=== PATIENT | male | born 1985 | race Two or more races ===

== ENCOUNTER 2018-03-20 18:00 | Emergency (ER) | payer OTHER ==
[~2018-03-20] VITALS: Ht 175.3 cm; Wt 61.2 kg
--- NOTE | 2018-03-20 18:10 | NUR ---
PRESENTS TO ER C/O LOW BACK PAIN, NAUSEA, VOMITING, FEELING WEAK. A/OX 4. BREATHING EVEN AND UNLABORED. NO SOB, NAD, VITALS STABLE. SAFETY AND COMFORT MEASURES IN PLACE. AWAITING MD ORDERS.
[2018-03-20] MEDS ORDERED: MORPHINE SULFATE INJ 2 MG/ML DISP.SYRIN IV ONE (18:30)
[2018-03-20] MEDS ORDERED: ONDANSETRON HCL/PF 4 MG/2 ML VIAL IVP ONE (18:30)
[2018-03-20] MEDS ORDERED: IV NS 0.9% 1,000 ML BAG IV ONE ×2 (18:30→21:00)
[2018-03-20] MEDS ORDERED: MORPHINE SULFATE INJ 4 MG/ML DISP.SYRIN ONE (18:40)
[2018-03-20] MEDS ORDERED: ONDANSETRON HCL/PF 4 MG/2 ML VIAL ONE (18:40)
--- NOTE | 2018-03-20 18:45 | NUR ---
NEW IV STARTED ON LAC, 20G. BLOOD DRAWN AND SENT TO LAB.
[2018-03-20 18:49] LABS: BASOPHILS # (AUTO) 0.2 /CMM (0.0-0.2); BASOPHILS % (AUTO) 1.5 % (0.0-2.0); EOSINOPHILS % (AUTO) 1.9 % (0.0-6.0); HEMATOCRIT 43 % (39-51); HEMOGLOBIN 14.7 g/dL (13.5-17.5); LYMPHOCYTES # (AUTO) 5.5 /CMM (0.8-4.8); LYMPHOCYTES % (AUTO) 45.9 % (20.0-44.0); MEAN CORPUSCULAR HGB CONC 34 g/dl (31.0-36.0); MEAN CORPUSCULAR VOLUME 93 fL (80-96); MONOCYTES # (AUTO) 0.9 /CMM (0.1-1.30); MONOCYTES % (AUTO) 7.1 % (2.0-12.0); NEUTROPHILS # (AUTO) 5.3 /CMM (1.8-8.9); NEUTROPHILS % (AUTO) 43.6 % (43.0-81.0); PLATELET COUNT (AUTO) 339 /CMM (150-450); RDW COEFFICIENT OF VARIATION 13.4 (11.5-15.0); WHITE BLOOD COUNT (AUTO) 12.1 K/uL (4.3-11.0)
[2018-03-20 19:03] LABS: CALCIUM, SERUM 9.2 mg/dL (8.5-10.1); CREATININE 1.2 mg/dL (0.6-1.3); POTASSIUM 3.7 mmol/L (3.5-5.1)
[2018-03-20 19:08] LABS: BILIRUBIN,DIRECT 0.1 mg/dL (0.0-0.2); BILIRUBIN,TOTAL 0.3 mg/dL (0.2-1.0); TOTAL PROTEIN, SERUM 7.4 g/dL (6.4-8.2)
--- NOTE | 2018-03-20 19:10 | NUR ---
REPORT GIVEN TO ARLEN ANDERS FOR TAYLOR.
--- NOTE | 2018-03-20 19:17 | NUR ---
RECEIVED REPORT FROM CHAGO ROLLINS FOR TAYLOR.
[2018-03-20] MEDS ORDERED: HYDROMORPHONE INJ 0.5 MG/0.5 ML SYRINGE IV ONE (19:30)
[2018-03-20] MEDS ORDERED: diphenhydrAMINE HCL 50 MG/ML VIAL IV ONE (20:30)
[2018-03-20] MEDS ORDERED: KETOROLAC TROMETHAMINE INJ 60 MG/2 ML VIAL IM ONE (20:30)
[2018-03-20] MEDS ORDERED: METOCLOPRAMIDE HCL 10 MG/2 ML VIAL IV ONE (20:30)
[2018-03-20 20:38] LABS: APPEARANCE,URINE Clear (CLEAR); BILIRUBIN,URINE Negative (NEGATIVE); BLOOD, URINE Negative Ery/uL (NEGATIVE); COLOR,URINE Yellow (YELLOW); KETONES,URINE Negative (NEGATIVE); LEUKOCYTE ESTERASE ,URINE Negative (NEGATIVE); NITRITE, URINE Negative (NEGATIVE); PH,URINE 7.5 (5.0-8.0); PROTEIN,URINE Negative (NEGATIVE); UGLUCOSE Negative (NEGATIVE); UROBILINOGEN,URINE 0.2 EU/dL (0.2)
[2018-03-20] MEDS ORDERED: KETOROLAC TROMETHAMINE INJ 30 MG/ML VIAL ONE (20:43)
[2018-03-20] MEDS ORDERED: METOCLOPRAMIDE HCL 10 MG/2 ML VIAL ONE (20:43)
[2018-03-20] MEDS ORDERED: diphenhydrAMINE HCL 50 MG/ML VIAL ONE (20:43)
[2018-03-20 22:19] VITALS: BP 119/65
--- NOTE | 2018-03-20 22:19 | NUR ---
Patient discharged to home in stable condition. Written and verbal after care instructions given. Patient verbalizes understanding of instruction.IV removed. Catheter intact and site benign. Pressure and 4x4 applied to site. No bleeding noted. VSS UPON DISCHARGE
== END 2018-03-20 22:23 | disposition home or self-care (01) ==
LOC: ER 18:06
DX: R10.84 Generalized abdominal pain (principal); R11.2 Nausea with vomiting, unspecified; F12.10 Cannabis abuse, uncomplicated; G89.29 Other chronic pain; K21.9 Gastro-esophageal reflux disease without esophagitis; N40.0 Benign prostatic hyperplasia without lower urinary tract symptoms
CPT/HCPCS: 36415; 74018; 80048; 80076; 80305; 81001; 83690; 85025; 85652; 86140; 93005; 96361; 96372; 96374; 96375; 99285; A4606; J1200; J1885; J2270; J2405; J2765; J7030 ×2; Z7610; 81000-TC

== ENCOUNTER 2018-03-22 13:21 | Inpatient (IN) | payer MEDICAID, OTHER ==
[~2018-03-22] VITALS: Ht 172.7 cm; Wt 68.5 kg
--- NOTE | 2018-03-22 13:25 | NUR ---
PRESENTS TO ER C/O GENERALIZED WEAKNESS, NAUSEA, VOMITING, HEADACHE. A/OX 4, BREATHING EVEN AND UNLABORED. NO SOB, NAD, VITALS STABLE. SAFETY AND COMFORT MEASURES IN PLACE. AWAITING MD ORDERS.
[2018-03-22] MEDS ORDERED: ONDANSETRON HCL/PF 4 MG/2 ML VIAL ONE (13:48)
[2018-03-22] MEDS ORDERED: diphenhydrAMINE HCL 50 MG/ML VIAL ONE (13:48)
[2018-03-22] MEDS ORDERED: METOCLOPRAMIDE HCL 10 MG/2 ML VIAL ONE (13:48)
[2018-03-22] MEDS ORDERED: MORPHINE SULFATE INJ 4 MG/ML DISP.SYRIN ONE (13:49)
--- NOTE | 2018-03-22 13:50 | NUR ---
NEW IV STARTED ON LAC, 20G. BLOOD DRAWN AND SENT TO LAB.
[2018-03-22 13:58] LABS: BASOPHILS # (AUTO) 0.2 /CMM (0.0-0.2); BASOPHILS % (AUTO) 1.8 % (0.0-2.0); HEMATOCRIT 43 % (39-51); HEMOGLOBIN 14.7 g/dL (13.5-17.5); LYMPHOCYTES # (AUTO) 3.6 /CMM (0.8-4.8); MEAN CORPUSCULAR HEMOGLOBIN 32 PG (26.0-33.0); MEAN CORPUSCULAR HGB CONC 34 g/dl (31.0-36.0); MEAN CORPUSCULAR VOLUME 92 fL (80-96); MONOCYTES # (AUTO) 0.6 /CMM (0.1-1.30); MONOCYTES % (AUTO) 7.2 % (2.0-12.0); NEUTROPHILS # (AUTO) 4.3 /CMM (1.8-8.9); PLATELET COUNT (AUTO) 325 /CMM (150-450); RDW COEFFICIENT OF VARIATION 13.2 (11.5-15.0); RED BLOOD CELL COUNT(AUTO) 4.66 MIL/uL (4.5-6.0); WHITE BLOOD COUNT (AUTO) 8.8 K/uL (4.3-11.0)
[2018-03-22] MEDS ORDERED: MORPHINE SULFATE INJ 2 MG/ML DISP.SYRIN IV ONE (14:00)
[2018-03-22] MEDS ORDERED: IV NS 0.9% 1,000 ML BAG IV ONE (14:00)
[2018-03-22] MEDS ORDERED: METOCLOPRAMIDE HCL 10 MG/2 ML VIAL IV ONE (14:00)
[2018-03-22] MEDS ORDERED: ONDANSETRON HCL/PF 4 MG/2 ML VIAL IVP ONE (14:00)
[2018-03-22] MEDS ORDERED: diphenhydrAMINE HCL 50 MG/ML VIAL IV ONE (14:00)
[2018-03-22] MEDS ORDERED: IV NS 0.9% 250 ML BAG IV ONE (14:00)
--- NOTE | 2018-03-22 14:25 | NUR ---
EDGING SUPERVISOR AT BEDSIDE.
[2018-03-22 14:27] LABS: CALCIUM, SERUM 8.6 mg/dL (8.5-10.1); CARBON DIOXIDE 25 mmol/L (21-32); CHLORIDE 104 mmol/L (98-107); CREATININE 0.7 mg/dL (0.6-1.3); GLUCOSE 103 mg/dL (74-106); POTASSIUM 3.3 mmol/L (3.5-5.1); SODIUM SERUM 138 mmol/L (136-145); UREA NITROGEN, BLOOD 8 mg/dL (7-18)
[2018-03-22 14:28] LABS: INR 0.94 (0.85-1.15)
[2018-03-22 14:32] LABS: ALANINE AMINOTRANSFERASE 18 U/L (12-78); ALBUMIN 3.8 g/dL (3.4-5.0); ALKALINE PHOSPHATASE 60 U/L (46-116); ASPARTATE AMINOTRANSFERASE 23 U/L (15-37); BILIRUBIN,DIRECT 0.1 mg/dL (0.0-0.2); BILIRUBIN,TOTAL 0.6 mg/dL (0.2-1.0); LIPASE 124 U/L (73-393); TOTAL PROTEIN, SERUM 6.9 g/dL (6.4-8.2)
[2018-03-22 14:34] LABS: TROPONIN I < 0.017 ng/mL (0.00-0.056)
[2018-03-22] MEDS ORDERED: HYDROMORPHONE 1 MG/1 ML DISP.SYRIN IV ONE (15:30)
[2018-03-22] MEDS ORDERED: IOHEXOL-300 100 ML VIAL IV ONE (15:30)
[2018-03-22] MEDS ORDERED: CT SWABBABLE VALVE TRANS SET 1 EA INFUS.SET MC ONE (15:30)
[2018-03-22] MEDS ORDERED: IV NS 0.9% 500 ML IV ONE (15:30)
--- NOTE | 2018-03-22 15:33 | NUR ---
PATIENT TAKEN TO CT VIA STRETCHER.
--- NOTE | 2018-03-22 15:41 | NUR ---
PATIENT RETURNED FROM CT IN STABLE CONDITION.
[2018-03-22] MEDS ORDERED: HYDROMORPHONE INJ 2 MG/ML DISP.SYRIN ONE (15:46)
[2018-03-22 15:47] LABS: APPEARANCE,URINE Clear (CLEAR); BILIRUBIN,URINE Negative (NEGATIVE); BLOOD, URINE Negative Ery/uL (NEGATIVE); COLOR,URINE Light yellow (YELLOW); KETONES,URINE 40 (NEGATIVE); LEUKOCYTE ESTERASE ,URINE Negative (NEGATIVE); NITRITE, URINE Negative (NEGATIVE); PH,URINE 8.5 (5.0-8.0); PROTEIN,URINE Negative (NEGATIVE); UGLUCOSE Negative (NEGATIVE); UROBILINOGEN,URINE 0.2 EU/dL (0.2)
--- NOTE | 2018-03-22 15:49 | NUR ---
REPAGED DR WOMACK.
[2018-03-22 15:57] LABS: BACTERIA,URINE None seen /HPF (None Seen); RBC,URINE 0-2 /HPF (0-2); SQUAMOUS EPITHELIAL CELL,UR Rare /HPF (None Seen); WBC,URINE 0-2 /HPF (0-3)
[2018-03-22 15:58] LABS: URINE AMORPHOUS PHOSPHATES Few /HPF (None Seen)
--- NOTE | 2018-03-22 16:30 | NUR ---
REPORT GIVEN TO ALLISON ANDERS FOR TAYLOR.
--- NOTE | 2018-03-22 16:42 | NUR ---
PATIENT TRANSPORTED TO [facility] VIA WHEELCHAIR. RNALLISON TO PROVIDE TAYLOR.
--- NOTE | 2018-03-22 16:56 | NUR ---
MS BATTERY CONTAINER INSPECTOR NOTE PATIENT RECEIVED FROM ER. REPORT RECEIVED FROM CHAGO ROLLINS. PATIENT IS ALERT AND ORIENTED x4. ON ROOM AIR TOLERATING WELL AT 98%. PATIENT STATES 7/10 ABDOMINAL PAIN, CRAMP-LIKE. ABLE TO COMMUNICATE NEEDS. BED LOCKED IN LOWEST POSITION WITH SIDE RAILS UP x2. ABLE TO COMMUNICATE NEEDS. IV ON LEFT AC 20G INTACT AND PATENT NO REDNESS OR SWELLING NOTED. NO KNOWN ALLERGIES. HISTORY OF ENLARGED PROSTATE, MARIJUANA SMOKER-EVERY OTHER DAY, HEART MURMUR SINCE , GALLBLADDER REMOVAL-3 YEARS AGO. CALL LIGHT WITHIN REACH AND SAFETY MEASURES IMPLEMENTED. AWAITING MD ORDERS AT THIS TIME. WILL CONTINUE TO MONITOR
[2018-03-22] MEDS ORDERED: ZOLPIDEM TARTRATE 5 MG TABLET PO PRN (17:30)
[2018-03-22] MEDS ORDERED: ONDANSETRON HCL/PF 4 MG/2 ML VIAL IVP PRN (17:30)
[2018-03-22] MEDS ORDERED: MAGNESIUM HYDROXIDE 30 ML UDC PO PRN (17:30)
[2018-03-22] MEDS ORDERED: ACETAMINOPHEN 325 MG TABLET PO PRN (17:30)
[2018-03-22] MEDS ORDERED: Z GUARD REMEDY 2 OZ OINT TP PRN (17:30)
[2018-03-22 17:35] VITALS: BP 139/83
--- NOTE | 2018-03-22 18:20 | NUR ---
MS RN NOTE RECEIVED ORDER FROM FOR KDUR 40 MEQ x1 NOW. ORDERS NOTED AND CARRIED OUT
[2018-03-22] MEDS ORDERED: POTASSIUM CHLORIDE 20 MEQ TAB.PRT.SR PO ONE (18:30)
--- NOTE | 2018-03-22 19:00 | NUR ---
MS RN CLOSING NOTE PATIENT IS RESTING COMFORTABLE IN BED AT THIS TIME LOCKED IN LOWEST POSITION WITH SIDERAILS UP x2. NO SOB OR DISTRESS NOTED. PATIENT STATED PAIN BUT TOLERABLE AT THIS TIME. POTASSIUM REPLACED WITH 40 MEQ X1. IV INTACT AND PATENT NO REDNESS OR SWELLING NOTED, NO IV FLUIDS AT THIS TIME PER MD. ALL NURSING CARE NEEDS ATTENDED TO NEEDED. PER GI AND MD TO POSSIBLY HAVE EGD/COLONOSCOPY DONE. PATIENT REFUSED SKIN ASSESSMENT UPON ADMISSION. CALL LIGHT WITHIN REACH AT ALL TIMES AND SAFETY MEASURES IMPLEMENTED. LABS IN AM. WILL ENDORSE TO INSPECTOR HAIRSPRING TRUING NURSE
--- NOTE | 2018-03-22 19:40 | NUR ---
RN OPENING NOTES RECEIVED REPORT FROM [facility] CHAGO COOPER. FOUND Pt AWAKE, RESTING IN BED. NO S/S OF ACUTE DISTRESS OR SOB NOTED. Pt IS A/OX4, VERBAL, ABLE TO MAKE NEEDS KNOWN. IV ACCESS ON LAC #20G, SL. SAFETY MEASURES IN PLACE. BED LOW, LOCKED, HOB ELEVATED, SIDE RAILS UP, CALL LIGHT AND BEDSIDE TABLE WITHIN REACH. WILL CONTINUE TO MONITOR Pt THROUGHOUT THE NIGHT FOR SAFETY.
[2018-03-22 20:00] VITALS: BP 111/64
[2018-03-22] MEDS: HYDROCODONE/APAP 5/325MG 1 EACH TABLET PO PRN (20:30)
--- NOTE | 2018-03-22 20:55 | NUR ---
RN NOTES TELEPHONE ORDER FROM DR KWON. TO START ON ERI CABALLEROIGHT FOR COLONOSCOPY TOMORROW. WILL ASCENCION OUT ORDERS.
[2018-03-22] MEDS ORDERED: PEG 3350/NA SULF,BICARB,CL/KCL 4,000 ML BOTTLE PO ONE (21:00)
[2018-03-22 21:15] VITALS: BP 111/64
--- NOTE | 2018-03-22 21:30 | NUR ---
RN NOTES CONSENT ORDER PLACED FOR EGD AND COLONOSCOPY PER DR KWON.
--- NOTE | 2018-03-23 06:30 | NUR ---
RN NOTES Pt WAS ONLY ABLE TO DRINK HALF OF THE GOLYTELY BOTTLE, SAID HE COULDN'T TAKE IN ANYMORE.
--- NOTE | 2018-03-23 06:39 | NUR ---
RN CLOSING NOTES NO SIGNIFICANT CHANGES IN Pt's CONDITION. Pt REMAINS STABLE AT THIS TIME. NO S/S OF ACUTE DISTRESS OR SOB NOTED DURING THE SHIFT. ALL NEEDS MET AND ATTENDED TO. SAFETY MEASURES IN PLACE. BED LOW, LOCKED, HOB ELEVATED, SIDE RAILS UP, CALL LIGHT AND BEDSIDE TABLE WITHIN REACH. WILL ENDORSE TO DAYSHIFT RN FOR Pt's TAYLOR.
[2018-03-23 07:02] LABS: BASOPHILS % (AUTO) 0.5 % (0.0-2.0); EOSINOPHILS % (AUTO) 2.5 % (0.0-6.0); HEMATOCRIT 42 % (39-51); HEMOGLOBIN 14.3 g/dL (13.5-17.5); LYMPHOCYTES # (AUTO) 3.2 /CMM (0.8-4.8); LYMPHOCYTES % (AUTO) 42.8 % (20.0-44.0); MEAN CORPUSCULAR HEMOGLOBIN 32 PG (26.0-33.0); MEAN CORPUSCULAR HGB CONC 34 g/dl (31.0-36.0); MEAN CORPUSCULAR VOLUME 96 fL (80-96); MONOCYTES # (AUTO) 0.6 /CMM (0.1-1.30); NEUTROPHILS # (AUTO) 3.4 /CMM (1.8-8.9); NEUTROPHILS % (AUTO) 46.2 % (43.0-81.0); PLATELET COUNT (AUTO) 250 /CMM (150-450); RDW COEFFICIENT OF VARIATION 13.7 (11.5-15.0); RED BLOOD CELL COUNT(AUTO) 4.44 MIL/uL (4.5-6.0); WHITE BLOOD COUNT (AUTO) 7.4 K/uL (4.3-11.0)
[2018-03-23 07:19] LABS: CALCIUM, SERUM 8.6 mg/dL (8.5-10.1); MAGNESIUM 1.7 mg/dL (1.8-2.4); PHOSPHORUS 3.3 mg/dL (2.5-4.9)
--- NOTE | 2018-03-23 07:30 | NUR ---
RN NOTES PATIENT A/OX3, VERBALLY RESPONSIVE, PT IN ROOM AIR AND TOLERATING WELL. PT HAS IV ON L AC #18G AND IS PATENT AND INTACT, ON SALINE LOCK. PATIENT NPO AT THIS TIME FOR EGD/COLONOSCOPY. PER PATIENT BOWEL IS ALMOST CLEAR. OR MADE AWARE BY SERVICE ASSISTANT NURSE. CHECKLIST COMPLETE, CONSENTS SIGNED. PATIENT DENIES PAIN AT THIS TIME, CALL LIGHT WITHIN REACH. BED KEPT IN LOW, LOCKED POSITION, AND SIDE RAILS X 2UP. WILL CONTINUE TO MONITOR.
[2018-03-23 08:47] VITALS: BP 133/82
--- NOTE | 2018-03-23 10:40 | NUR ---
RN NOTES PATIENT BROUGHT DOWN TO OR FOR EGD AND COLONOSCOPY, NO DISTRESS NOTED.
[2018-03-23 12:20] VITALS: BP 138/71
--- NOTE | 2018-03-23 12:23 | NUR ---
RN NOTES PATIENT CAME BACK FROM OR, IN STABLE CONDITION, VITALS MONITORED, RECEIVED ORDERS. PER DR. WOMACK KEEP PATIENT NPO AT THIS TIME.
[2018-03-23] MEDS ORDERED: IV NS 0.9% 1,000 ML BAG IV PRN (12:30)
--- NOTE | 2018-03-23 12:30 | NUR ---
RN NOTES PATIENT SEEN BY DR. WOMACK, AND DECIDED TO ORDER CLEAR LIQUID DIET FOR PATIENT.
[2018-03-23] MEDS: Magnesium 1GM/D5W 100ML PREMIX 100 ML IV SCH ×2 (12:46→13:54)
[2018-03-23] MEDS: IV NS 0.9% 1,000 ML IV PRN (12:47)
[2018-03-23 15:28] VITALS: BP 129/80
--- NOTE | 2018-03-23 18:16 | NUR ---
RN NOTES PATIENT A/OX4, VERBALLY RESPONSIVE, IN ROOM AIR AND TOLERATING WELL, NO SHORTNESS OF BREATH NOTED, PATIENT IN BED WITH HEAD OF BED ELEVATED,WATCHING TV, TOLERATED LUNCH AND DINNER, DENIES PAIN OR DISCOMFORT AT THIS TIME, PIV INFUSING AND TOLERATING WELL, INDEPENDENT WITH ADLS, NEEDS ATTENDED AND ANTICIPATED, CALL LIGHT WITHIN REACH, WILL ENDORSE TO CALENDER SUPERVISOR FOR TAYLOR.
--- NOTE | 2018-03-23 19:30 | NUR ---
MS/RN RECEIVE PATIENT AWAKE, ALERT, ORIENTED, C/O BOTH SIDES OF THE UPPER ABDOMEN, 04/10, WILL MEDICATE WITH PAIN MED, OTHERWISE, PATIENT IS COMFORTABLE, WILL MONITOR.
[2018-03-23] MEDS: HYDROCODONE/APAP 5/325MG 1 EACH TABLET PO PRN (19:50)
[2018-03-23 20:00] VITALS: BP 124/82
--- NOTE | 2018-03-23 23:13 | NUR ---
MS/RN PAIN AND NAUSEA WERE NOT RELIEVED PER PATIENT. MICHELLE TEE, WAS MADE AWARE. ORDERS RECEIVED. PER NAY PATENT HAS TO WAIT UNTIL NEXT PAIN DUE, WHICH SHE INCREASED THE DOSE OF NORCO FROM 5 MG TO 10 MG. ORDERS ACKNOWLEDGED.
[2018-03-23] MEDS ORDERED: CALCIUM CARBONATE 500 MG TAB.CHEW PO PRN (23:30)
[2018-03-23] MEDS ORDERED: SCOPOLAMINE HBR 1 EA PATCH.TD72 TD SCH (23:30)
[2018-03-23] MEDS: PANTOPRAZOLE 40 MG VIAL IV SCH (23:41)
[2018-03-24] MEDS ORDERED: SCOPOLAMINE HBR 1 EA PATCH.TD72 TD ONE (00:19)
[2018-03-24] MEDS: HYDROCODONE/APAP 10/325MG 1 EA TABLET PO PRN ×2 (00:32→08:10)
--- NOTE | 2018-03-24 01:50 | NUR ---
MS/RN PATIENT IS SLEEPING AT THIS TIME, EASILY AROUSABLE, APPEAR COMFORTABLE, NO SIGNS OF DISTRESS NOTED, CALL LIGHT IN REACH. WILL CONTINUE TO MONITOR.
[2018-03-24] MEDS: IV NS 0.9% 1,000 ML IV PRN (06:08)
--- NOTE | 2018-03-24 06:31 | NUR ---
MS/RN PATIENT AWAKE BUT STILL SLEEPY, COMFORTABLE, NO SIGNS OF DISTRESS NOTED, IVF INFUSING WELL, PER CELL ATTENDANT HELPER REFUSED LINEN CHANGE, ALL NEEDS ATTENDED AT THIS TIME. WILL CONTINUE TO MONITOR.
[2018-03-24 07:08] LABS: BASOPHILS % (AUTO) 0.6 % (0.0-2.0); EOSINOPHILS % (AUTO) 2.5 % (0.0-6.0); HEMATOCRIT 40 % (39-51); HEMOGLOBIN 13.8 g/dL (13.5-17.5); LYMPHOCYTES # (AUTO) 2.8 /CMM (0.8-4.8); LYMPHOCYTES % (AUTO) 41.5 % (20.0-44.0); MEAN CORPUSCULAR HEMOGLOBIN 32 PG (26.0-33.0); MEAN CORPUSCULAR HGB CONC 34 g/dl (31.0-36.0); MEAN CORPUSCULAR VOLUME 95 fL (80-96); MONOCYTES # (AUTO) 0.6 /CMM (0.1-1.30); MONOCYTES % (AUTO) 9.4 % (2.0-12.0); NEUTROPHILS # (AUTO) 3.1 /CMM (1.8-8.9); PLATELET COUNT (AUTO) 234 /CMM (150-450); RDW COEFFICIENT OF VARIATION 13.5 (11.5-15.0); RED BLOOD CELL COUNT(AUTO) 4.26 MIL/uL (4.5-6.0); WHITE BLOOD COUNT (AUTO) 6.7 K/uL (4.3-11.0)
[2018-03-24 07:30] LABS: CALCIUM, SERUM 8.3 mg/dL (8.5-10.1); CREATININE 0.9 mg/dL (0.6-1.3); POTASSIUM 3.5 mmol/L (3.5-5.1)
--- NOTE | 2018-03-24 07:41 | NUR ---
MS RN OPENING NOTES RECEIVED PT FROM NIGHTSHIFT NURSE IN STABLE CONDITION. PT IS A/O X4. NO SOB NOTED. BREATHING IS EVEN AND UNLABORED. PT IS ON RA AND SATING WELL. HE COMPLAINS OF BILATERAL LOWER ABDOMINAL AND RIB PAIN RATED 7/10 HOWEVER DENIES ANY N/V. WILL ADMINISTER PRN PAIN MEDICATION WHEN DUE. IV TO LEFT AC NOTED TO BE PATENT AND INTACT. NO REDNESS OR SIGNS OF INFILTRATION NOTED. PT TOLERATING NS INFUSION WELL. BED IN LOW LOCKED POSITION, SIDE RAILS UP X2, CALL LIGHT WITHIN REACH. WILL CONTINUE TO MONITOR
[2018-03-24 08:00] VITALS: BP 132/80
[2018-03-24] MEDS: PANTOPRAZOLE 40 MG VIAL IV SCH (08:09)
--- NOTE | 2018-03-24 08:49 | NUR ---
PT TAKEN DOWN FOR ABDOMINAL CT IN STABLE CONDITION
--- NOTE | 2018-03-24 11:46 | NUR ---
MS MOUNTER HAND NOTES PT WAS DISCHARGED FROM FACILITY IN STABLE CONDITION. ALL NEEDS WERE MET DURING SHIFT AND ORDERS CARRIED OUT ACCORDINGLY. ALL DUE MEDS GIVEN. DISCHARGE INSTRUCTIONS REVIEWED WITH PT UTILIZING EXIT CARE MATERIALS. PT VERBALIZED FULL UNDERSTANDING OF DISCHARGE MATERIALS/INSTRUCTIONS AND SIGNED ALL PAPERWORK. BELONGINGS VERIFIED PRIOR TO D/C. BELONGINGS FORM SIGNED BY PT. COPIES OF ALL D/C PAPERWORK MADE AND PLACED IN PT'S CHART. IV WAS SUCCESSFULLY REMOVED WITH CATHETER TIP INTACT. HE LEFT VIA UBER WITH ALL BELONGINGS.
== END 2018-03-24 11:45 | disposition home or self-care (01) | DRG 241 ==
LOC: EDUNIT# 13:21 → ER 13:22 → MED 16:27
PROVIDERS: ADMIT Family Medicine; ATTEND Family Medicine
PROC: 0DB98ZX Excision of Duodenum, Via Natural or Artificial Opening Endoscopic, Diagnostic (ICD-10-PCS; principal; 2018-03-22)
PROC: 0DB78ZX Excision of Stomach, Pylorus, Via Natural or Artificial Opening Endoscopic, Diagnostic (ICD-10-PCS; principal; 2018-03-22)
PROC: 0DJD8ZZ Inspection of Lower Intestinal Tract, Via Natural or Artificial Opening Endoscopic (ICD-10-PCS; principal; 2018-03-22)
DX: K29.70 Gastritis, unspecified, without bleeding (principal); E83.42 Hypomagnesemia; G43.A0 Cyclical vomiting, in migraine, not intractable; R10.9 Unspecified abdominal pain; E87.6 Hypokalemia; F12.90 Cannabis use, unspecified, uncomplicated; K21.0 Gastro-esophageal reflux disease with esophagitis; K64.1 Second degree hemorrhoids; N40.0 Benign prostatic hyperplasia without lower urinary tract symptoms; K29.80 Duodenitis without bleeding; K44.9 Diaphragmatic hernia without obstruction or gangrene; Z90.49 Acquired absence of other specified parts of digestive tract
CPT/HCPCS: 36415; 71045-TC; 80048-TC; 80061-TC; 80076-TC; 81000-TC; 83690-TC; 83735-TC; 84100-TC; 84484-TC; 85025-TC; 85730-TC; 87081-TC; 88305-TC; 88313-TC; 88342; A4606; C9113; J1170; J1200; J2270; J2405; J2765; J3475; J7030; J7040; J7050; Q9967; Z7610

== ENCOUNTER 2018-04-05 15:39 | Emergency (ER) | payer MEDICAID ==
[~2018-04-05] VITALS: Ht 167.6 cm; Wt 61.2 kg
--- NOTE | 2018-04-05 15:45 | NUR ---
BB MOTHER: NAUSEA, VOMITING, WEAKNESS, ABDOMINAL PAIN. STATES RECENTLY DISCHARGED FROM INPATIENT HOSPITAL. NAD NOTED. PT AAO X4, AMB WITH STEADY GAIT. RR EVEN AND UNLABORED. PENDING MD REYNOLDS.
[2018-04-05] MEDS ORDERED: FAMOTIDINE/PF INJ 20 MG/2 ML VIAL IV ONE ×2 (16:08→16:30)
[2018-04-05] MEDS ORDERED: METOCLOPRAMIDE HCL 10 MG/2 ML VIAL ONE (16:08)
[2018-04-05] MEDS ORDERED: MORPHINE SULFATE INJ 4 MG/ML DISP.SYRIN ONE (16:08)
[2018-04-05] MEDS ORDERED: MORPHINE SULFATE INJ 2 MG/ML DISP.SYRIN ONE (16:08)
[2018-04-05 16:26] LABS: CALCIUM, SERUM 9.5 mg/dL (8.5-10.1); POTASSIUM 3.9 mmol/L (3.5-5.1)
[2018-04-05] MEDS ORDERED: METOCLOPRAMIDE HCL 10 MG/2 ML VIAL IV ONE (16:30)
[2018-04-05] MEDS ORDERED: IV NS 0.9% 1,000 ML BAG IV ONE (16:30)
[2018-04-05] MEDS ORDERED: MORPHINE SULFATE INJ 2 MG/ML DISP.SYRIN IV ONE (16:30)
[2018-04-05 16:31] LABS: ALBUMIN 4.5 g/dL (3.4-5.0); BILIRUBIN,DIRECT 0.1 mg/dL (0.0-0.2); BILIRUBIN,TOTAL 0.6 mg/dL (0.2-1.0); TOTAL PROTEIN, SERUM 8.2 g/dL (6.4-8.2)
[2018-04-05 16:54] LABS: BASOPHILS # (AUTO) 0.2 /CMM (0.0-0.2); BASOPHILS % (AUTO) 2.4 % (0.0-2.0); EOSINOPHILS % (AUTO) 1.6 % (0.0-6.0); HEMATOCRIT 46 % (39-51); HEMOGLOBIN 15.3 g/dL (13.5-17.5); LYMPHOCYTES # (AUTO) 3.5 /CMM (0.8-4.8); LYMPHOCYTES % (AUTO) 41.3 % (20.0-44.0); MEAN CORPUSCULAR HEMOGLOBIN 32 PG (26.0-33.0); MEAN CORPUSCULAR HGB CONC 33 g/dl (31.0-36.0); MEAN CORPUSCULAR VOLUME 96 fL (80-96); MONOCYTES # (AUTO) 0.7 /CMM (0.1-1.30); MONOCYTES % (AUTO) 8.8 % (2.0-12.0); NEUTROPHILS # (AUTO) 3.8 /CMM (1.8-8.9); NEUTROPHILS % (AUTO) 45.9 % (43.0-81.0); PLATELET COUNT (AUTO) 264 /CMM (150-450); RDW COEFFICIENT OF VARIATION 13.4 (11.5-15.0); WHITE BLOOD COUNT (AUTO) 8.4 K/uL (4.3-11.0)
[2018-04-05] MEDS ORDERED: HYDROMORPHONE MDV 1 MG in IV NS 0.9% 50 ML IV STA (16:55)
[2018-04-05] MEDS ORDERED: HYDROMORPHONE 1 MG/1 ML DISP.SYRIN IV ONE (17:00)
[2018-04-05] MEDS ORDERED: ONDANSETRON HCL/PF 4 MG/2 ML VIAL IV ONE (17:00)
[2018-04-05] MEDS ORDERED: DICYCLOMINE HCL INJ 20 MG/2 ML AMPUL IM ONE ×2 (17:00→17:01)
[2018-04-05] MEDS ORDERED: ONDANSETRON HCL/PF 4 MG/2 ML VIAL ONE (17:01)
[2018-04-05] MEDS ORDERED: HYDROMORPHONE INJ 2 MG/ML DISP.SYRIN ONE (17:02)
--- NOTE | 2018-04-05 18:30 | NUR ---
PT TOLERATED PO CHALLENGE AND VERBALIZED FEELING BETTER. MD BRITTON
[2018-04-05 18:52] VITALS: BP 119/78
== END 2018-04-05 18:53 | disposition home or self-care (01) ==
LOC: ER 15:43
DX: R10.84 Generalized abdominal pain (principal); G89.29 Other chronic pain; R11.2 Nausea with vomiting, unspecified; F17.200 Nicotine dependence, unspecified, uncomplicated; Z90.49 Acquired absence of other specified parts of digestive tract
CPT/HCPCS: 36415; 80048; 80076; 83690; 85025; 96361; 96372; 96374; 96375; 99284; A4216; A4606; J0500; J1170 ×2; J2270 ×2; J2405; J2765; J3490; J7030 ×2; Z7610

== ENCOUNTER 2018-04-27 22:41 | Emergency (ER) | payer MEDICAID ==
[~2018-04-27] VITALS: Ht 185.4 cm; Wt 68.0 kg
--- NOTE | 2018-04-27 22:51 | NUR ---
PT TO ER BED 3. BIB FRIEND C/O ABD PAIN WITH N/V X 6 HOURS. PT PLACED IN GOWN AND ON HYDROLOGIC ENGINEER. VSS/RESP EVEN UNLABORED/NAD NOTED/SKIN WARM AND DRY/AFEBRILE/AOX4. AWAITNG MD REYNOLDS.
[2018-04-27] MEDS ORDERED: HYDROMORPHONE INJ 2 MG/ML DISP.SYRIN IV ONE (23:30)
[2018-04-27] MEDS ORDERED: IV NS 0.9% 1,000 ML BAG IV ONE (23:30)
[2018-04-27] MEDS ORDERED: ONDANSETRON HCL/PF 4 MG/2 ML VIAL IVP ONE (23:30)
--- NOTE | 2018-04-27 23:30 | NUR ---
EMT AT BEDSIDE FOR EKG.
[2018-04-27] MEDS ORDERED: LIDOCAINE 2% JEL UROJET 10 ML MM ONE (23:32)
--- NOTE | 2018-04-27 23:35 | NUR ---
18G IV TO R FA X 1 ATTEMPT USING ASEPTIC TECH, BLOOD HANDED OVER TO THE LAB AT BEDSIDE. IV FLUSHES EASILY WITH NS, NO S/S INFILTRATION NOTED AT THIS TIME.
[2018-04-27] MEDS ORDERED: ONDANSETRON HCL/PF 4 MG/2 ML VIAL ONE (23:39)
[2018-04-27] MEDS ORDERED: HYDROMORPHONE INJ 2 MG/ML DISP.SYRIN ONE (23:40)
--- NOTE | 2018-04-27 23:45 | NUR ---
XRAY AT BEDSIDE.
[2018-04-27 23:55] LABS: BASOPHILS % (AUTO) 0.3 % (0.0-2.0); EOSINOPHILS % (AUTO) 0.1 % (0.0-6.0); HEMATOCRIT 51 % (39-51); HEMOGLOBIN 16.9 g/dL (13.5-17.5); LYMPHOCYTES # (AUTO) 1.6 /CMM (0.8-4.8); LYMPHOCYTES % (AUTO) 11.5 % (20.0-44.0); MEAN CORPUSCULAR HEMOGLOBIN 32 PG (26.0-33.0); MEAN CORPUSCULAR HGB CONC 33 g/dl (31.0-36.0); MEAN CORPUSCULAR VOLUME 94 fL (80-96); MONOCYTES # (AUTO) 0.2 /CMM (0.1-1.30); MONOCYTES % (AUTO) 1.2 % (2.0-12.0); NEUTROPHILS # (AUTO) 12.3 /CMM (1.8-8.9); NEUTROPHILS % (AUTO) 86.9 % (43.0-81.0); PLATELET COUNT (AUTO) 333 /CMM (150-450); RDW COEFFICIENT OF VARIATION 13.2 (11.5-15.0); RED BLOOD CELL COUNT(AUTO) 5.37 MIL/uL (4.5-6.0); WHITE BLOOD COUNT (AUTO) 14.1 K/uL (4.3-11.0)
[2018-04-28 00:07] LABS: CALCIUM, SERUM 9.8 mg/dL (8.5-10.1); CARBON DIOXIDE 27 mmol/L (21-32); CHLORIDE 102 mmol/L (98-107); CREATININE 1.3 mg/dL (0.6-1.3); GLUCOSE 154 mg/dL (74-106); SODIUM SERUM 140 mmol/L (136-145); UREA NITROGEN, BLOOD 16 mg/dL (7-18)
[2018-04-28 00:09] LABS: INR 0.93 (0.87-1.13)
[2018-04-28 00:13] LABS: ALANINE AMINOTRANSFERASE 33 U/L (12-78); ALBUMIN 4.9 g/dL (3.4-5.0); ALKALINE PHOSPHATASE 76 U/L (46-116); ASPARTATE AMINOTRANSFERASE 25 U/L (15-37); BILIRUBIN,DIRECT 0.1 mg/dL (0.0-0.2); BILIRUBIN,TOTAL 0.4 mg/dL (0.2-1.0); LIPASE 117 U/L (73-393); TOTAL PROTEIN, SERUM 9.1 g/dL (6.4-8.2)
[2018-04-28 00:15] LABS: TROPONIN I < 0.017 ng/mL (0.00-0.056)
[2018-04-28] MEDS ORDERED: IV NS 0.9% 250 ML IV ONE (00:45)
[2018-04-28] MEDS ORDERED: IOHEXOL-300 100 ML VIAL IV ONE (00:45)
--- NOTE | 2018-04-28 00:59 | NUR ---
PT TO CT VIA STRETCHER. VSS.
[2018-04-28 01:31] LABS: APPEARANCE,URINE CLEAR (CLEAR); BILIRUBIN,URINE NEGATIVE (NEGATIVE); BLOOD, URINE NEGATIVE Ery/uL (NEGATIVE); COLOR,URINE YELLOW (YELLOW); KETONES,URINE 1+ (NEGATIVE); LEUKOCYTE ESTERASE ,URINE NEGATIVE (NEGATIVE); NITRITE, URINE NEGATIVE (NEGATIVE); PROTEIN,URINE 1+ mg/dl (NEGATIVE); UGLUCOSE NEGATIVE (NEGATIVE)
[2018-04-28 01:47] LABS: BACTERIA,URINE None seen /HPF (None Seen); MUCUS,URINE Moderate /LPF (None Seen); RBC,URINE 0-2 /HPF (0-2); SQUAMOUS EPITHELIAL CELL,UR Few /HPF (None Seen)
--- NOTE | 2018-04-28 02:18 | NUR ---
IV removed. Catheter intact and site benign. Pressure and 4x4 applied to site. No bleeding noted.Patient discharged with friend to home in stable condition. Written and verbal after care instructions given, patient instructed not to drive. Patient verbalizes understanding of instruction. Patient is awake and alert to self, day, and place. Patient ambulatory with a steady gait.
[2018-04-28 02:19] VITALS: BP 138/87
== END 2018-04-28 02:19 | disposition home or self-care (01) ==
LOC: ER 22:42
DX: G89.29 Other chronic pain (principal); R10.84 Generalized abdominal pain; R19.7 Diarrhea, unspecified; R01.1 Cardiac murmur, unspecified; F19.10 Other psychoactive substance abuse, uncomplicated; F17.200 Nicotine dependence, unspecified, uncomplicated; F12.10 Cannabis abuse, uncomplicated; Z90.49 Acquired absence of other specified parts of digestive tract
CPT/HCPCS: 36415; 71045-TC; 74021; 80048-TC; 80076-TC; 80305; 81000-TC; 83690-TC; 84484-TC; 85025-TC; 85730-TC; A4606; J1170; J2405; J3490; J7030; J7050; Q9967

== ENCOUNTER 2018-05-15 10:28 | Emergency (ER) | payer MEDICAID ==
[~2018-05-15] VITALS: Ht 170.2 cm; Wt 65.8 kg
--- NOTE | 2018-05-15 10:36 | NUR ---
PT BIBRA FROM HOME TO ER BED 11. C/O EPIGASTRIC PAIN W/ N/V X 3 DAYS. NO ACTIVE VOMITING AT THIS TIME. GOWNED AND PLACED ON MONITOR. HYPERTENSIVE OTHERWISE STABLE VITALS. AWAITING MD REYNOLDS.
--- NOTE | 2018-05-15 10:57 | NUR ---
DR MARTINS AT BEDSIDE FOR EVAL.
--- NOTE | 2018-05-15 11:04 | NUR ---
IV LINE STARTED BLOOD DRAWN AND SENT TO LAB.
[2018-05-15] MEDS ORDERED: LIDOCAINE VISCOUS 2% UD 15 ML UDC ONE (11:06)
[2018-05-15] MEDS ORDERED: ONDANSETRON HCL/PF 4 MG/2 ML VIAL ONE ×2 (11:06→13:45)
[2018-05-15] MEDS ORDERED: MAG HYDROX/AL HYDROX/SIMETH 30 ML UDC ONE (11:06)
[2018-05-15 11:08] LABS: BASOPHILS # (AUTO) 0.1 /CMM (0.0-0.2); BASOPHILS % (AUTO) 0.7 % (0.0-2.0); EOSINOPHILS % (AUTO) 3.6 % (0.0-6.0); HEMATOCRIT 45 % (39-51); HEMOGLOBIN 14.8 g/dL (13.5-17.5); LYMPHOCYTES # (AUTO) 1.9 /CMM (0.8-4.8); LYMPHOCYTES % (AUTO) 24.3 % (20.0-44.0); MEAN CORPUSCULAR HEMOGLOBIN 30 PG (26.0-33.0); MEAN CORPUSCULAR HGB CONC 33 g/dl (31.0-36.0); MEAN CORPUSCULAR VOLUME 92 fL (80-96); MONOCYTES # (AUTO) 0.6 /CMM (0.1-1.30); MONOCYTES % (AUTO) 8.3 % (2.0-12.0); NEUTROPHILS # (AUTO) 4.9 /CMM (1.8-8.9); NEUTROPHILS % (AUTO) 63.1 % (43.0-81.0); PLATELET COUNT (AUTO) 322 /CMM (150-450); RDW COEFFICIENT OF VARIATION 12.3 (11.5-15.0); WHITE BLOOD COUNT (AUTO) 7.8 K/uL (4.3-11.0)
[2018-05-15] MEDS: IV NS 0.9% 1,000 ML BAG IV ONE (11:12)
[2018-05-15] MEDS: MAG HYDROX/AL HYDROX/SIMETH 30 ML UDC PO ONE (11:13)
[2018-05-15] MEDS: ONDANSETRON HCL/PF 4 MG/2 ML VIAL IVP ONE (11:13)
[2018-05-15] MEDS: LIDOCAINE VISCOUS 2% UD 15 ML UDC MM ONE (11:13)
[2018-05-15 11:18] LABS: CALCIUM, SERUM 9.1 mg/dL (8.5-10.1); CREATININE 0.9 mg/dL (0.6-1.3); POTASSIUM 4.1 mmol/L (3.5-5.1)
[2018-05-15 11:29] LABS: BILIRUBIN,DIRECT 0.1 mg/dL (0.0-0.2); BILIRUBIN,TOTAL 0.6 mg/dL (0.2-1.0); TOTAL PROTEIN, SERUM 7.6 g/dL (6.4-8.2)
[2018-05-15] MEDS ORDERED: diphenhydrAMINE HCL 50 MG/ML VIAL ONE (11:58)
[2018-05-15] MEDS ORDERED: METOCLOPRAMIDE HCL 10 MG/2 ML VIAL ONE (11:58)
[2018-05-15] MEDS: METOCLOPRAMIDE HCL 10 MG/2 ML VIAL IV ONE (12:03)
[2018-05-15] MEDS: diphenhydrAMINE HCL 50 MG/ML VIAL IV ONE (12:03)
--- NOTE | 2018-05-15 12:03 | NUR ---
PT VOMITTED X 1 POST MEDICATION. C/O SEVERE ABDOMINAL PAIN AND REQUESTING FOR PAIN MEDS. DR MARTINS MADE AWARE.
[2018-05-15] MEDS ORDERED: HYDROCODONE/APAP 5/325MG 1 EACH TABLET ONE (13:45)
[2018-05-15] MEDS: ONDANSETRON HCL/PF - ER 4 MG/2 ML VIAL IV ONE (13:50)
[2018-05-15] MEDS: HYDROCODONE/APAP 5/325MG 1 EACH TABLET PO ONE (13:55)
[2018-05-15 14:27] VITALS: BP 132/89
--- NOTE | 2018-05-15 14:27 | NUR ---
Patient discharged to home in stable condition. Written and verbal after care instructions given. Patient verbalizes understanding of instruction.IV removed. Catheter intact and site benign. Pressure and 4x4 applied to site. No bleeding noted. Prescription given.
== END 2018-05-15 14:29 | disposition home or self-care (01) ==
LOC: ER 10:32
DX: G89.29 Other chronic pain (principal); R10.84 Generalized abdominal pain; R11.2 Nausea with vomiting, unspecified; Z90.49 Acquired absence of other specified parts of digestive tract; F17.200 Nicotine dependence, unspecified, uncomplicated; F12.10 Cannabis abuse, uncomplicated
CPT/HCPCS: 36415; 80048; 80076; 83690; 85025; 96361; 96374; 96375; 96376; 99284; A4216; A4606; J1200; J2405 ×2; J2765; J7030; Z7610

== ENCOUNTER 2018-05-15 19:32 | Emergency (ER) | payer MEDICAID ==
[~2018-05-15] VITALS: Ht 165.1 cm; Wt 68.0 kg
--- NOTE | 2018-05-15 20:00 | NUR ---
PT BB FATHER C/C EPIGASTRIC PAIN 5/10 NON RADIATING X3-4 HOURS RETAIL SHIFT MANAGER. PT DENIES SOB, N/V/D. PT IS AAOX4. RESP EVEN AND UNLABORED. NO S/S OF ACUTE DISTRESS NOTED. PT SAFETY AND COMFORT MEASURES IN PLACE. PT PLACED ON DRILLING AND PRODUCTION SUPERINTENDENT AND POX. PT;S FATHER BEDSIDE. BEDSIDE FOR EVAL.
[2018-05-15] MEDS ORDERED: LIDOCAINE VISCOUS 2% UD 15 ML UDC ONE (20:18)
[2018-05-15] MEDS ORDERED: PANTOPRAZOLE 40 MG VIAL ONE (20:18)
[2018-05-15] MEDS ORDERED: MAG HYDROX/AL HYDROX/SIMETH 30 ML UDC ONE (20:19)
[2018-05-15] MEDS: LIDOCAINE VISCOUS 2% UD 15 ML UDC MM ONE (20:45)
[2018-05-15] MEDS: MAG HYDROX/AL HYDROX/SIMETH 30 ML UDC PO ONE (20:45)
[2018-05-15] MEDS: PANTOPRAZOLE 40 MG VIAL IV ONE (20:45)
[2018-05-15] MEDS: IV NS 0.9% 1,000 ML BAG IV ONE (20:45)
[2018-05-15 22:32] VITALS: BP 148/89
--- NOTE | 2018-05-15 22:32 | NUR ---
Patient discharged to home in stable condition. Written and verbal after care instructions given. Patient verbalizes understanding of instruction.IV removed. Catheter intact and site benign. Pressure and 4x4 applied to site. No bleeding noted.
== END 2018-05-15 22:33 | disposition home or self-care (01) ==
LOC: ER 19:33
DX: K20.9 Esophagitis, unspecified (principal); K29.70 Gastritis, unspecified, without bleeding; K29.80 Duodenitis without bleeding; Z90.49 Acquired absence of other specified parts of digestive tract; F17.200 Nicotine dependence, unspecified, uncomplicated
CPT/HCPCS: 96361; 96374; 99284; A4606; C9113; J7030; Z7610

== ENCOUNTER 2018-05-17 12:14 | Emergency (ER) | payer MEDICAID ==
[~2018-05-17] VITALS: Ht 175.3 cm; Wt 59.0 kg
--- NOTE | 2018-05-17 12:35 | NUR ---
32 YO MALE BB MOTHER C/O EPIGASTRIC PAIN. PATIENT AMBULATED TO ER BED, SKINW ARM AND DRY, RESP EVEN AND UNLABORED. PATIENT GOWNED,PLACED ON FASHION EDITOR. AWITING ORDERS FROM PROVIDER
[2018-05-17] MEDS ORDERED: ONDANSETRON HCL/PF 4 MG/2 ML VIAL ONE ×2 (12:43→13:49)
[2018-05-17] MEDS ORDERED: PANTOPRAZOLE 40 MG VIAL ONE (12:43)
[2018-05-17] MEDS ORDERED: MORPHINE SULFATE INJ 2 MG/ML DISP.SYRIN ONE (12:43)
[2018-05-17] MEDS ORDERED: FAMOTIDINE/PF INJ 20 MG/2 ML VIAL IV ONE ×2 (12:44→13:00)
[2018-05-17 12:55] LABS: BASOPHILS # (AUTO) 0.2 /CMM (0.0-0.2); BASOPHILS % (AUTO) 1.8 % (0.0-2.0); EOSINOPHILS % (AUTO) 2.5 % (0.0-6.0); HEMATOCRIT 46 % (39-51); LYMPHOCYTES # (AUTO) 2.2 /CMM (0.8-4.8); LYMPHOCYTES % (AUTO) 24.4 % (20.0-44.0); MEAN CORPUSCULAR HEMOGLOBIN 30 PG (26.0-33.0); MEAN CORPUSCULAR HGB CONC 33 g/dl (31.0-36.0); MEAN CORPUSCULAR VOLUME 92 fL (80-96); MONOCYTES # (AUTO) 0.7 /CMM (0.1-1.30); MONOCYTES % (AUTO) 7.6 % (2.0-12.0); NEUTROPHILS # (AUTO) 5.7 /CMM (1.8-8.9); NEUTROPHILS % (AUTO) 63.7 % (43.0-81.0); PLATELET COUNT (AUTO) 348 /CMM (150-450); RDW COEFFICIENT OF VARIATION 12.5 (11.5-15.0); RED BLOOD CELL COUNT(AUTO) 4.97 MIL/uL (4.5-6.0)
--- NOTE | 2018-05-17 12:56 | NUR ---
18G RIGHT FA IV STARTED, BLOOD SAMLPE OBTAINED AND SENT TO LAB. MEDICATED PT ORDERED
[2018-05-17] MEDS ORDERED: ONDANSETRON HCL/PF 4 MG/2 ML VIAL IVP ONE (13:00)
[2018-05-17] MEDS ORDERED: MORPHINE SULFATE INJ 2 MG/ML DISP.SYRIN IV ONE ×2 (13:00→13:30)
[2018-05-17] MEDS ORDERED: IV NS 0.9% 1,000 ML BAG IV ONE (13:00)
[2018-05-17] MEDS ORDERED: PANTOPRAZOLE 40 MG VIAL IV ONE (13:00)
[2018-05-17 13:05] LABS: CALCIUM, SERUM 9.4 mg/dL (8.5-10.1); CARBON DIOXIDE 27 mmol/L (21-32); CHLORIDE 104 mmol/L (98-107); CREATININE 0.9 mg/dL (0.6-1.3); GLUCOSE 102 mg/dL (74-106); POTASSIUM 3.6 mmol/L (3.5-5.1); SODIUM SERUM 139 mmol/L (136-145); UREA NITROGEN, BLOOD 10 mg/dL (7-18)
[2018-05-17 13:09] LABS: INR 0.92 (0.85-1.15)
[2018-05-17 13:13] LABS: TROPONIN I < 0.017 ng/mL (0.00-0.056)
[2018-05-17 13:20] LABS: ALANINE AMINOTRANSFERASE 25 U/L (12-78); ALBUMIN 3.9 g/dL (3.4-5.0); ALKALINE PHOSPHATASE 64 U/L (46-116); ASPARTATE AMINOTRANSFERASE 35 U/L (15-37); BILIRUBIN,DIRECT 0.1 mg/dL (0.0-0.2); BILIRUBIN,TOTAL 0.7 mg/dL (0.2-1.0); LIPASE 156 U/L (73-393); TOTAL PROTEIN, SERUM 7.4 g/dL (6.4-8.2)
[2018-05-17] MEDS ORDERED: ONDANSETRON HCL/PF 4 MG/2 ML VIAL IV ONE (13:30)
[2018-05-17] MEDS ORDERED: ACETAMINOPHEN ES 500 MG TABLET ONE (13:49)
[2018-05-17 13:56] VITALS: BP 135/86
--- NOTE | 2018-05-17 13:57 | NUR ---
Patient discharged to home in stable condition. Written and verbal after care instructions given. Patient verbalizes understanding of instruction.IV removed. Catheter intact and site benign. Pressure and 4x4 applied to site. No bleeding noted. PT ambulatory with a steady gait VITAL SIGNS WITHIN NORMAL LIMITS.
[2018-05-17] MEDS ORDERED: ACETAMINOPHEN 325 MG TABLET PO ONE (14:00)
== END 2018-05-17 14:31 | disposition home or self-care (01) ==
LOC: ER 12:16
DX: R10.13 Epigastric pain (principal); R10.12 Left upper quadrant pain; R10.11 Right upper quadrant pain; F17.200 Nicotine dependence, unspecified, uncomplicated; R11.10 Vomiting, unspecified; Z90.89 Acquired absence of other organs
CPT/HCPCS: 36415; 76705; 80048; 80076; 83690; 84484; 85025; 85730; 96361; 96374; 96375; 96376; 99285; A4606; C9113; J2270; J2405 ×2; J3490; J7030; Z7610

== ENCOUNTER 2018-07-11 18:37 | Emergency (ER) | payer MEDICAID ==
[~2018-07-11] VITALS: Ht 175.3 cm; Wt 62.6 kg
--- NOTE | 2018-07-11 18:40 | NUR ---
AAOX3 BIBRA FROM HOME C/O LOWER ABDOMINAL PAIN, PT WAS RECENTLY DISCHARGE AT [facility] YESTERDAY FOR SAME REASON. RR IS EVEN AND UNLABORED WITH NAD NOTED. SKIN IS WARM AND DRY. PLACED ON THE MONITOR. AWAITING MD FOR EVAL.
--- NOTE | 2018-07-11 19:04 | NUR ---
ROBERTA MORENO AT BEDSIDE FOR EVAL.
--- NOTE | 2018-07-11 19:15 | NUR ---
IV LINE STARTED BLOOD DRAWN AND SENT TO LAB.
[2018-07-11] MEDS ORDERED: ONDANSETRON HCL/PF 4 MG/2 ML VIAL ONE (19:19)
[2018-07-11] MEDS ORDERED: HYDROMORPHONE 1 MG/1 ML DISP.SYRIN ONE (19:19)
[2018-07-11 19:22] LABS: BASOPHILS # (AUTO) 0.2 /CMM (0.0-0.2); BASOPHILS % (AUTO) 1.9 % (0.0-2.0); EOSINOPHILS % (AUTO) 1.3 % (0.0-6.0); HEMATOCRIT 43 % (39-51); HEMOGLOBIN 14.6 g/dL (13.5-17.5); LYMPHOCYTES # (AUTO) 3.5 /CMM (0.8-4.8); LYMPHOCYTES % (AUTO) 35.9 % (20.0-44.0); MEAN CORPUSCULAR HGB CONC 34 g/dl (31.0-36.0); MEAN CORPUSCULAR VOLUME 92 fL (80-96); MONOCYTES # (AUTO) 0.6 /CMM (0.1-1.30); MONOCYTES % (AUTO) 6.2 % (2.0-12.0); NEUTROPHILS # (AUTO) 5.3 /CMM (1.8-8.9); NEUTROPHILS % (AUTO) 54.7 % (43.0-81.0); PLATELET COUNT (AUTO) 347 /CMM (150-450); RED BLOOD CELL COUNT(AUTO) 4.69 MIL/uL (4.5-6.0); WHITE BLOOD COUNT (AUTO) 9.7 K/uL (4.3-11.0)
[2018-07-11] MEDS ORDERED: ONDANSETRON HCL/PF 4 MG/2 ML VIAL IVP ONE (19:30)
[2018-07-11] MEDS ORDERED: HYDROMORPHONE INJ 2 MG/ML DISP.SYRIN IV ONE (19:30)
[2018-07-11] MEDS ORDERED: IV NS 0.9% 1,000 ML BAG IV ONE (19:30)
[2018-07-11 19:31] LABS: CALCIUM, SERUM 8.7 mg/dL (8.5-10.1)
--- NOTE | 2018-07-11 19:35 | NUR ---
RECEIVED REPORT FROM CHAGO ZAAMN FOR TAYLOR
[2018-07-11 19:37] LABS: ALBUMIN 3.5 g/dL (3.4-5.0); BILIRUBIN,TOTAL 0.2 mg/dL (0.2-1.0); INR 0.89 (0.85-1.15); TOTAL PROTEIN, SERUM 6.6 g/dL (6.4-8.2)
--- NOTE | 2018-07-11 19:39 | NUR ---
REPORT TO ARLEN ANDERS FOR TAYLOR.
[2018-07-11] MEDS ORDERED: IV NS 0.9% 250 ML IV ONE (20:25)
[2018-07-11] MEDS ORDERED: CT SWABBABLE VALVE TRANS SET 1 EA INFUS.SET MC ONE (20:25)
[2018-07-11] MEDS ORDERED: IOHEXOL-300 100 ML VIAL IV ONE (20:25)
[2018-07-11] MEDS ORDERED: MORPHINE SULFATE INJ 2 MG/ML DISP.SYRIN IV ONE (21:30)
[2018-07-11] MEDS ORDERED: MORPHINE SULFATE INJ 4 MG/ML DISP.SYRIN ONE (21:34)
--- NOTE | 2018-07-11 21:39 | NUR ---
BEDSIDE FOR EVAL
[2018-07-11 21:46] LABS: APPEARANCE,URINE Clear (CLEAR); BILIRUBIN,URINE Negative (NEGATIVE); BLOOD, URINE Negative Ery/uL (NEGATIVE); COLOR,URINE Yellow (YELLOW); KETONES,URINE Trace (NEGATIVE); LEUKOCYTE ESTERASE ,URINE Negative (NEGATIVE); NITRITE, URINE Negative (NEGATIVE); PROTEIN,URINE Negative (NEGATIVE); UGLUCOSE Negative (NEGATIVE); UROBILINOGEN,URINE 0.2 EU/dL (0.2)
[2018-07-11 21:50] LABS: BACTERIA,URINE Rare /HPF (None Seen); RBC,URINE 0-2 /HPF (0-2); SQUAMOUS EPITHELIAL CELL,UR Few /HPF (None Seen); WBC,URINE 0-2 /HPF (0-3)
[2018-07-11 22:11] VITALS: BP 172/82
== END 2018-07-11 22:13 | disposition home or self-care (01) ==
LOC: ER 18:41
DX: K85.90 Acute pancreatitis without necrosis or infection, unspecified (principal); R11.10 Vomiting, unspecified; F17.200 Nicotine dependence, unspecified, uncomplicated; F12.10 Cannabis abuse, uncomplicated; Z90.49 Acquired absence of other specified parts of digestive tract
CPT/HCPCS: 36415; 74177; 80048; 80076; 81001; 83690; 85025; 85730; 96361; 96374; 96375; 99285; A4606; J1170; J2270; J2405; J7030; J7050; Q9967; Z7610; 81000-TC

== ENCOUNTER 2018-10-10 15:25 | Emergency (ER) | payer MEDICAID ==
[~2018-10-10] VITALS: Ht 167.6 cm; Wt 65.8 kg
[2018-10-10] MEDS ORDERED: ONDANSETRON HCL/PF 4 MG/2 ML VIAL IVP ONE (16:00)
[2018-10-10] MEDS ORDERED: ONDANSETRON HCL/PF 4 MG/2 ML VIAL ONE (16:04)
[2018-10-10 16:05] LABS: BASOPHILS # (AUTO) 0.1 /CMM (0.0-0.2); EOSINOPHILS % (AUTO) 3.7 % (0.0-6.0); HEMATOCRIT 41 % (39-51); HEMOGLOBIN 13.7 g/dL (13.5-17.5); LYMPHOCYTES # (AUTO) 2.2 /CMM (0.8-4.8); LYMPHOCYTES % (AUTO) 33.1 % (20.0-44.0); MEAN CORPUSCULAR HGB CONC 34 g/dl (31.0-36.0); MEAN CORPUSCULAR VOLUME 94 fL (80-96); MONOCYTES # (AUTO) 0.6 /CMM (0.1-1.30); MONOCYTES % (AUTO) 8.7 % (2.0-12.0); NEUTROPHILS # (AUTO) 3.5 /CMM (1.8-8.9); NEUTROPHILS % (AUTO) 53.5 % (43.0-81.0); PLATELET COUNT (AUTO) 282 /CMM (150-450); RED BLOOD CELL COUNT(AUTO) 4.33 MIL/uL (4.5-6.0); WHITE BLOOD COUNT (AUTO) 6.5 K/uL (4.3-11.0)
--- NOTE | 2018-10-10 16:11 | NUR ---
PT BIB FAMILY MEMBER C/O Abdominal pain with nausea and vomiting, while visiting family in hospital. alert and oriented x 4, verbally responsive and able to make needs known. on room air, sating at 97%, skin warm to touch, and wnl. breathing evenly and unlabroed. will continue to monitor accordingly.
[2018-10-10 16:18] LABS: ALBUMIN 3.5 g/dL (3.4-5.0); BILIRUBIN,DIRECT 0.1 mg/dL (0.0-0.2); BILIRUBIN,TOTAL 0.2 mg/dL (0.2-1.0); CALCIUM, SERUM 8.4 mg/dL (8.5-10.1); POTASSIUM 3.7 mmol/L (3.5-5.1); TOTAL PROTEIN, SERUM 6.4 g/dL (6.4-8.2)
[2018-10-10] MEDS ORDERED: IV NS 0.9% 1,000 ML BAG IV ONE (16:30)
[2018-10-10 17:39] LABS: APPEARANCE,URINE Clear (CLEAR); BILIRUBIN,URINE Negative (NEGATIVE); BLOOD, URINE Negative Ery/uL (NEGATIVE); COLOR,URINE Yellow (YELLOW); KETONES,URINE Negative (NEGATIVE); LEUKOCYTE ESTERASE ,URINE Negative (NEGATIVE); NITRITE, URINE Negative (NEGATIVE); PROTEIN,URINE Negative (NEGATIVE); UGLUCOSE Negative (NEGATIVE); UROBILINOGEN,URINE 0.2 EU/dL (0.2)
[2018-10-10 18:29] VITALS: BP 122/71
== END 2018-10-10 18:29 | disposition home or self-care (01) ==
LOC: ER 15:26
DX: R11.2 Nausea with vomiting, unspecified (principal); R19.7 Diarrhea, unspecified; K21.9 Gastro-esophageal reflux disease without esophagitis; F17.200 Nicotine dependence, unspecified, uncomplicated; F12.10 Cannabis abuse, uncomplicated; Z90.49 Acquired absence of other specified parts of digestive tract
CPT/HCPCS: 36415; 80048; 80076; 81001; 83690; 85025; 85730; 96361; 96374; 99283; A4606; J2405; J7030; Z7610; 81000-TC

== ENCOUNTER 2018-12-07 11:16 | Emergency (ER) | payer MEDICAID ==
[~2018-12-07] VITALS: Ht 170.2 cm; Wt 72.6 kg
--- NOTE | 2018-12-07 11:26 | NUR ---
DIFFUSE ABDOMINAL PAIN W/ N/V SINCE 0600. ALSO C/O MIDSTERNAL CP X TODAY. PAIN IS 10/10. PT IS AOX4, AMB, VSS, RR EVEN AND UNLABORED ON RA. SKIN WARM, DRY, INTACT. NO ACUTE DISTRESS NOTED. FAMILY AT BEDSIDE. READY FOR EVAL.
[2018-12-07] MEDS ORDERED: ONDANSETRON HCL/PF 4 MG/2 ML VIAL ONE (11:58)
[2018-12-07] MEDS ORDERED: KETOROLAC TROMETHAMINE 15 MG/ML VIAL ONE (11:58)
[2018-12-07] MEDS ORDERED: MORPHINE SULFATE INJ 4 MG/ML DISP.SYRIN ONE ×2 (11:59→14:44)
[2018-12-07] MEDS ORDERED: KETOROLAC TROMETHAMINE INJ 30 MG/ML VIAL IV ONE (12:00)
[2018-12-07] MEDS ORDERED: MORPHINE SULFATE INJ 2 MG/ML DISP.SYRIN IV ONE ×2 (12:00→14:30)
[2018-12-07] MEDS ORDERED: ONDANSETRON HCL/PF - ER 4 MG/2 ML VIAL IV ONE (12:00)
[2018-12-07] MEDS ORDERED: IV NS 0.9% 1,000 ML BAG IV ONE (12:00)
[2018-12-07 12:15] LABS: BASOPHILS # (AUTO) 0.1 /CMM (0.0-0.2); BASOPHILS % (AUTO) 0.4 % (0.0-2.0); EOSINOPHILS % (AUTO) 1.4 % (0.0-6.0); HEMATOCRIT 46 % (39-51); HEMOGLOBIN 15.3 g/dL (13.5-17.5); LYMPHOCYTES # (AUTO) 1.9 /CMM (0.8-4.8); LYMPHOCYTES % (AUTO) 11.2 % (20.0-44.0); MEAN CORPUSCULAR HGB CONC 34 g/dl (31.0-36.0); MEAN CORPUSCULAR VOLUME 93 fL (80-96); MONOCYTES # (AUTO) 0.5 /CMM (0.1-1.30); MONOCYTES % (AUTO) 3.2 % (2.0-12.0); NEUTROPHILS # (AUTO) 13.9 /CMM (1.8-8.9); NEUTROPHILS % (AUTO) 83.8 % (43.0-81.0); PLATELET COUNT (AUTO) 403 /CMM (150-450); RED BLOOD CELL COUNT(AUTO) 4.95 MIL/uL (4.5-6.0); WHITE BLOOD COUNT (AUTO) 16.6 K/uL (4.3-11.0)
[2018-12-07 12:24] LABS: CALCIUM, SERUM 10.2 mg/dL (8.5-10.1); CREATININE 1.1 mg/dL (0.6-1.3); POTASSIUM 3.6 mmol/L (3.5-5.1)
[2018-12-07 12:28] LABS: ALBUMIN 4.3 g/dL (3.4-5.0); BILIRUBIN,DIRECT 0.1 mg/dL (0.0-0.2); BILIRUBIN,TOTAL 0.4 mg/dL (0.2-1.0); TOTAL PROTEIN, SERUM 8.8 g/dL (6.4-8.2)
--- NOTE | 2018-12-07 12:46 | NUR ---
PT TAKEN TO CT VIA WILLIAM
--- NOTE | 2018-12-07 13:02 | NUR ---
PT BACK FROM CT, GIOVANI WELL. PLACED ON MONITOR, IVF CONTINUE INFUSING. WILL CONT TO MONITOR.
--- NOTE | 2018-12-07 13:24 | NUR ---
PT STILL COMPLAINING OF PAIN 07/11. PA NOTIFIED
--- NOTE | 2018-12-07 13:32 | NUR ---
HOUSE SUP CALLED FOR BED
--- NOTE | 2018-12-07 13:43 | NUR ---
SPOKE WITH BRAILLE TEACHER. STATED POSSIBLE FACILITY TRANSFER AND WILL CALL BACK
[2018-12-07 14:04] LABS: APPEARANCE,URINE Clear (CLEAR); BILIRUBIN,URINE Negative (NEGATIVE); BLOOD, URINE Trace-intact Ery/uL (NEGATIVE); COLOR,URINE Yellow (YELLOW); KETONES,URINE Negative (NEGATIVE); LEUKOCYTE ESTERASE ,URINE Negative (NEGATIVE); NITRITE, URINE Negative (NEGATIVE); PROTEIN,URINE Negative (NEGATIVE); UGLUCOSE Negative (NEGATIVE); UROBILINOGEN,URINE 0.2 EU/dL (0.2)
[2018-12-07 14:05] LABS: BACTERIA,URINE None seen /HPF (None Seen); RBC,URINE 0-2 /HPF (0-2); SQUAMOUS EPITHELIAL CELL,UR Rare /HPF (None Seen); WBC,URINE 0-2 /HPF (0-3)
--- NOTE | 2018-12-07 14:30 | NUR ---
SPOKE TO KAYCEE AT [facility]. PT IS CAPITATED TO [facility]. DR IS DR NAIR. WILL INFORM PT THAT HE IS BEING TRANSFERRED TO [facility].
--- NOTE | 2018-12-07 15:32 | NUR ---
Patient is resting comfortably in bed with eyes closed. Easily aroused. VSS
--- NOTE | 2018-12-07 16:16 | NUR ---
CALL BACK FROM [facility] IN ADMITTING WITH [place] INFO: GOING TO [facility], ROOM 308-B,REPORT TO MIGUEL ANDERS AT [phone],[facility] ETA 1800
[2018-12-07 18:02] VITALS: BP 135/76
--- NOTE | 2018-12-07 18:03 | NUR ---
Patient is resting comfortably in bed with eyes closed. Easily aroused. VSS
--- NOTE | 2018-12-07 19:13 | NUR ---
REPORT GIVEN TO ALOK CHAND FROM [facility] [address] FOR TRANSPORT
--- NOTE | 2018-12-07 19:17 | NUR ---
CALLED [facility] TO GIVE REPORT. ASKED ME TO CALL LATER AFTER SHIFT CHANGE. INFORMED THEM THAT EMS IS EN ROUTE.
== END 2018-12-07 19:13 | disposition short-term general hospital (02) ==
LOC: ER 11:17
DX: R10.84 Generalized abdominal pain (principal); R00.1 Bradycardia, unspecified; K21.9 Gastro-esophageal reflux disease without esophagitis; F17.200 Nicotine dependence, unspecified, uncomplicated; Z90.49 Acquired absence of other specified parts of digestive tract; Z87.19 Personal history of other diseases of the digestive system
CPT/HCPCS: 36415; 71045-TC; 76700-TC; 80048-TC; 80076-TC; 80305; 81000-TC; 83690-TC; 84484-TC; 85025-TC; 87081-TC; G0480; J1885; J2270; J2405; J7030

== ENCOUNTER → 2019-03-27 | Emergency (ER) | payer MEDICAID ==
[~2019-03-27] VITALS: Ht 175.3 cm; Wt 65.8 kg
[~2019-03-27] MED LIST: IV NS 0.9% 1,000 ML BAG IV ONE; KETOROLAC TROMETHAMINE INJ 30 MG/ML VIAL IV ONE; KETOROLAC TROMETHAMINE INJ 60 MG/2 ML VIAL IM ONE; LORAZEPAM INJ 2 MG/ML VIAL IV ONE; LORAZEPAM INJ 2 MG/ML VIAL ONE; MORPHINE SULFATE INJ 2 MG/ML DISP.SYRIN IV ONE; MORPHINE SULFATE INJ 4 MG/ML DISP.SYRIN ONE; ONDANSETRON HCL/PF 4 MG/2 ML VIAL IVP ONE; ONDANSETRON HCL/PF 4 MG/2 ML VIAL ONE
--- NOTE | 2019-03-27 12:41 | NUR ---
RN NOTES PT RECEIVED IN ROOM ER #4, A/Ox4, C/O EPIGASTRIC PAIN 07/11 PAIN MD YUKO AT THE BEDSIDE , CONTINUE TO MONITOR .
[2019-03-27 12:48] LABS: BASOPHILS # (AUTO) 0.1 /CMM (0.0-0.2); BASOPHILS % (AUTO) 1.4 % (0.0-2.0); EOSINOPHILS % (AUTO) 2.6 % (0.0-6.0); HEMATOCRIT 46 % (39-51); HEMOGLOBIN 15.7 g/dL (13.5-17.5); LYMPHOCYTES # (AUTO) 4.3 /CMM (0.8-4.8); LYMPHOCYTES % (AUTO) 46.5 % (20.0-44.0); MEAN CORPUSCULAR HGB CONC 34 g/dl (31.0-36.0); MEAN CORPUSCULAR VOLUME 92 fL (80-96); MONOCYTES # (AUTO) 0.9 /CMM (0.1-1.30); MONOCYTES % (AUTO) 9.3 % (2.0-12.0); NEUTROPHILS # (AUTO) 3.7 /CMM (1.8-8.9); NEUTROPHILS % (AUTO) 40.2 % (43.0-81.0); PLATELET COUNT (AUTO) 288 /CMM (150-450); RED BLOOD CELL COUNT(AUTO) 5.02 MIL/uL (4.5-6.0); WHITE BLOOD COUNT (AUTO) 9.2 K/uL (4.3-11.0)
[2019-03-27 12:57] LABS: CALCIUM, SERUM 8.6 mg/dL (8.5-10.1); POTASSIUM 4.1 mmol/L (3.5-5.1)
[2019-03-27 13:02] LABS: ALBUMIN 3.9 g/dL (3.4-5.0); BILIRUBIN,TOTAL 0.4 mg/dL (0.2-1.0); TOTAL PROTEIN, SERUM 7.6 g/dL (6.4-8.2)
--- NOTE | 2019-03-27 13:11 | NUR ---
RN NOTES PT RESTING IN BED, EYES CLOSED, STILL C/O ABD PAIN 06/11 , SUPPORTIVE FAMILY AT THE BEDSIDE, CONTINUE TO MONITOR
--- NOTE | 2019-03-27 13:40 | NUR ---
RN NOTES PT DISCHARGED FROM ER , ACCOMPANIED BY HIS MOM , IN STABLE CONDITION .
[2019-03-27 13:42] VITALS: BP 122/85
--- NOTE | 2019-03-27 13:44 | NUR ---
Patient discharged to home in stable condition. Written and verbal after care instructions given. Patient verbalizes understanding of instruction.
== END | disposition home or self-care (01) ==
LOC: ER 12:30
DX: R10.13 Epigastric pain (principal); K21.9 Gastro-esophageal reflux disease without esophagitis; F17.200 Nicotine dependence, unspecified, uncomplicated; R19.7 Diarrhea, unspecified
CPT/HCPCS: 36415; 80048; 80076; 83690; 85025; 85730; 96361; 96374; 96375; 99283; J1885; J2060; J2270; J2405; J7030

== ENCOUNTER 2019-04-15 14:43 | Emergency (ER) | payer MEDICAID ==
[~2019-04-15] VITALS: Ht 170.2 cm; Wt 62.6 kg
--- NOTE | 2019-04-15 14:50 | NUR ---
33 YEAR OLD MALE BIB BY PARENT FOR ABDOMINAL PAIN W/ NAUSEA AND VOMITING X 1 HOUR. TOOK ZOFRAN 8MG WITH NO RELEIF. ALERT AND ORIENTED X4 BREATHING EVEN AND UNALBORED WITH NO DISTRESS NOTED. SKIN WARM TO TOUCH AND INTACT. PATIENT IS AMBULATORY. AWAITING TO BE SEEN BY .
[2019-04-15] MEDS ORDERED: MORPHINE SULFATE INJ 4 MG/ML DISP.SYRIN ONE ×3 (15:15→17:55)
[2019-04-15] MEDS ORDERED: MORPHINE SULFATE INJ 2 MG/ML DISP.SYRIN ONE (15:15)
[2019-04-15] MEDS ORDERED: MAG HYDROX/AL HYDROX/SIMETH 30 ML UDC ONE (15:15)
[2019-04-15] MEDS ORDERED: FAMOTIDINE/PF INJ 20 MG/2 ML VIAL IV ONE (15:16)
[2019-04-15] MEDS ORDERED: METOCLOPRAMIDE HCL 10 MG/2 ML VIAL ONE (15:16)
[2019-04-15 15:31] LABS: BASOPHILS # (AUTO) 0.1 /CMM (0.0-0.2); BASOPHILS % (AUTO) 1.4 % (0.0-2.0); EOSINOPHILS % (AUTO) 1.9 % (0.0-6.0); HEMATOCRIT 49 % (39-51); HEMOGLOBIN 16.3 g/dL (13.5-17.5); LYMPHOCYTES # (AUTO) 3.8 /CMM (0.8-4.8); LYMPHOCYTES % (AUTO) 35.2 % (20.0-44.0); MEAN CORPUSCULAR HGB CONC 34 g/dl (31.0-36.0); MEAN CORPUSCULAR VOLUME 93 fL (80-96); MONOCYTES # (AUTO) 0.8 /CMM (0.1-1.30); MONOCYTES % (AUTO) 7.3 % (2.0-12.0); NEUTROPHILS # (AUTO) 5.9 /CMM (1.8-8.9); NEUTROPHILS % (AUTO) 54.2 % (43.0-81.0); PLATELET COUNT (AUTO) 300 /CMM (150-450); RED BLOOD CELL COUNT(AUTO) 5.22 MIL/uL (4.5-6.0); WHITE BLOOD COUNT (AUTO) 10.9 K/uL (4.3-11.0)
[2019-04-15] MEDS: IV NS 0.9% 1,000 ML BAG IV ONE (15:31)
[2019-04-15] MEDS: METOCLOPRAMIDE HCL 10 MG/2 ML VIAL IV ONE (15:32)
[2019-04-15] MEDS: MORPHINE SULFATE INJ 10 MG/ML DISP.SYRIN IV ONE (15:32)
[2019-04-15] MEDS: MAG HYDROX/AL HYDROX/SIMETH 30 ML UDC PO ONE (15:32)
[2019-04-15] MEDS: FAMOTIDINE/PF INJ 20 MG/2 ML VIAL IV ONE (15:32)
[2019-04-15 15:36] LABS: CALCIUM, SERUM 9.6 mg/dL (8.5-10.1); POTASSIUM 3.9 mmol/L (3.5-5.1)
[2019-04-15 15:43] LABS: ALBUMIN 4.2 g/dL (3.4-5.0); BILIRUBIN,TOTAL 0.3 mg/dL (0.2-1.0); TOTAL PROTEIN, SERUM 7.6 g/dL (6.4-8.2)
[2019-04-15] MEDS: MORPHINE SULFATE INJ 2 MG/ML DISP.SYRIN IV ONE ×2 (15:58→17:57)
--- NOTE | 2019-04-15 16:56 | NUR ---
INSIDE CONTRACTOR SALES AT BEDSIDE TO TAKE PATIENT FOR CT SCAN OF THE ABDOMEN
[2019-04-15] MEDS ORDERED: IV NS 0.9% 250 ML IV ONE (16:58)
[2019-04-15] MEDS ORDERED: CT SWABBABLE VALVE TRANS SET 1 EA INFUS.SET MC ONE (16:58)
[2019-04-15] MEDS ORDERED: IOHEXOL-300 100 ML VIAL IV ONE (16:58)
--- NOTE | 2019-04-15 17:56 | NUR ---
Sofiya gallegos in [facility] - 04/15/19 at 1814 by ARYAN PT ACCEPTED TO [facility] BY DR. MONTE AND DR. CALIX
[2019-04-15 18:36] VITALS: BP 144/88
--- NOTE | 2019-04-15 18:40 | NUR ---
PER VILMA, PT HAS BED BUT AWAITING FOR MD CALL IN TO RELEASE INFO, WILL REPAGE MD PAULINO
--- NOTE | 2019-04-15 19:14 | NUR ---
REED FROM [facility] INSPECTOR HANDBAG [employer]AMES CALLED TO NOTIFY THAT PATIENT WILL BE TRANSFERRED TO [facility] ROOM 303 BED B [phone]. [facility] WILL BE PICKING UP PATIENT IN 30 MINS. REPORT WAS GIVEN TO MERCEDES ANDERS FROM [facility]. PATIENT AND PATIENTS MOTHER WAS MADE AWARE.
[2019-04-15] MEDS ORDERED: DICYCLOMINE HCL INJ 20 MG/2 ML AMPUL IM ONE (19:20)
[2019-04-15] MEDS: DICYCLOMINE HCL INJ 20 MG/2 ML AMPUL IM ONE (19:23)
== END 2019-04-15 20:17 | disposition short-term general hospital (02) ==
LOC: ER 14:47
DX: G89.29 Other chronic pain (principal); R10.84 Generalized abdominal pain; R11.2 Nausea with vomiting, unspecified; K21.9 Gastro-esophageal reflux disease without esophagitis; F12.90 Cannabis use, unspecified, uncomplicated
CPT/HCPCS: 36415; 74177; 80048; 80076; 82962; 83690; 85025; 96361; 96372; 96374; 96375; 96376; 99285; J0500; J2270 ×4; J2765; J3490; J7030; J7050; Q9967

== ENCOUNTER 2019-09-27 21:05 | Emergency (ER) | payer MEDICAID ==
[~2019-09-27] VITALS: Ht 172.7 cm; Wt 61.2 kg
[2019-09-27] MEDS ORDERED: ONDANSETRON HCL/PF 4 MG/2 ML VIAL IVP ONE (22:30)
[2019-09-27] MEDS ORDERED: IV NS 0.9% 1,000 ML BAG IV ONE (22:30)
[2019-09-27] MEDS ORDERED: ONDANSETRON HCL/PF 4 MG/2 ML VIAL ONE (22:30)
[2019-09-27 22:47] LABS: BASOPHILS # (AUTO) 0.1 /CMM (0.0-0.2); BASOPHILS % (AUTO) 0.5 % (0.0-2.0); EOSINOPHILS % (AUTO) 0.5 % (0.0-6.0); HEMATOCRIT 44 % (39-51); HEMOGLOBIN 14.8 g/dL (13.5-17.5); LYMPHOCYTES # (AUTO) 1.6 /CMM (0.8-4.8); LYMPHOCYTES % (AUTO) 11.6 % (20.0-44.0); MEAN CORPUSCULAR HGB CONC 33 g/dl (31.0-36.0); MEAN CORPUSCULAR VOLUME 93 fL (80-96); MONOCYTES # (AUTO) 0.4 /CMM (0.1-1.30); MONOCYTES % (AUTO) 2.5 % (2.0-12.0); NEUTROPHILS # (AUTO) 12.1 /CMM (1.8-8.9); NEUTROPHILS % (AUTO) 84.9 % (43.0-81.0); PLATELET COUNT (AUTO) 334 /CMM (150-450); RED BLOOD CELL COUNT(AUTO) 4.76 MIL/uL (4.5-6.0); WHITE BLOOD COUNT (AUTO) 14.2 K/uL (4.3-11.0)
[2019-09-27 23:01] LABS: CALCIUM, SERUM 9.3 mg/dL (8.5-10.1); CREATININE 1.1 mg/dL (0.6-1.3); POTASSIUM 3.7 mmol/L (3.5-5.1)
[2019-09-27 23:06] LABS: ALBUMIN 3.8 g/dL (3.4-5.0); BILIRUBIN,TOTAL 0.2 mg/dL (0.2-1.0); TOTAL PROTEIN, SERUM 7.2 g/dL (6.4-8.2)
--- NOTE | 2019-09-27 23:22 | NUR ---
PT CAME TO ER BED 9 W/ MOTHER C/O ABDOMINAL PAIN. 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 HE STATES THAT HE HAS HX OF IBS. NAUSEA, CURRENTLY NOT VOMITING. AAOX4. NO SOB BREATHING EVENLY AND UNLABORED. CONNECTED TO MONITOR. MOTHER AT BEDSIDE
[2019-09-27] MEDS ORDERED: MAG HYDROX/AL HYDROX/SIMETH 30 ML UDC PO ONE (23:30)
[2019-09-27] MEDS ORDERED: HYDROMORPHONE INJ 2 MG/ML DISP.SYRIN IV ONE (23:30)
[2019-09-27] MEDS ORDERED: LIDOCAINE VISCOUS 2% UD 15 ML UDC MM ONE (23:30)
[2019-09-27] MEDS ORDERED: FAMOTIDINE/PF INJ 20 MG/2 ML VIAL IV ONE ×2 (23:30→23:32)
[2019-09-27] MEDS ORDERED: MAG HYDROX/AL HYDROX/SIMETH 30 ML UDC ONE (23:31)
[2019-09-27] MEDS ORDERED: LIDOCAINE VISCOUS 2% UD 15 ML UDC ONE (23:31)
[2019-09-27] MEDS ORDERED: HYDROMORPHONE 1 MG/1 ML DISP.SYRIN ONE (23:31)
--- NOTE | 2019-09-27 23:42 | NUR ---
PT UNABLE TO PROVIDE URINE AT THIS TIME WILL ASK AGAIN LATER.
[2019-09-27] MEDS ORDERED: IOHEXOL-300 100 ML VIAL IV ONE (23:46)
--- NOTE | 2019-09-27 23:57 | NUR ---
PT SENT TO CT
--- NOTE | 2019-09-28 00:03 | NUR ---
PT UNABLE TO PROVIDE URINE AT THIS TIME WILL ASK AGAIN LATER.
--- NOTE | 2019-09-28 00:35 | NUR ---
MD ORDERED TO GIVE PO CHALLENGE. PT TOLERATED PO CHALLENGE WELL WITH A LITTLE BIT OF NAUSEA. HAS NOT VOMITED DURING STAY AT HOSPITAL.
--- NOTE | 2019-09-28 00:36 | NUR ---
ORDERS CARRIED OUT.
--- NOTE | 2019-09-28 00:36 | NUR ---
MD ORDERED URINE NOT REQUIRED
[2019-09-28] MEDS ORDERED: PROCHLORPERAZINE EDISYLATE 10 MG/2 ML VIAL ONE (01:11)
[2019-09-28] MEDS ORDERED: DEXAMETHASONE SOD PHOSPHATE 10 MG/ML VIAL ONE (01:11)
[2019-09-28] MEDS ORDERED: diphenhydrAMINE HCL 50 MG/ML VIAL ONE (01:11)
[2019-09-28] MEDS ORDERED: ACETAMINOPHEN ES 500 MG TABLET ONE (01:12)
--- NOTE | 2019-09-28 01:15 | NUR ---
RE-EVALUATED PT.
--- NOTE | 2019-09-28 01:19 | NUR ---
verbal order from md to give compazine 10mg IV, benadryl 25mg IV, and dexamethasone 10mg IV, and tylenol 1gram PO. will carry out orders
--- NOTE | 2019-09-28 01:25 | NUR ---
Medicated as ordered.
--- NOTE | 2019-09-28 01:27 | NUR ---
Patient states that he has a right-side sinus infection. right maxillary sinus swollen noted Addendum: 09/28/19 at 0132 by FRANCINE MD haji
[2019-09-28] MEDS ORDERED: ACETAMINOPHEN ES 500 MG TABLET PO ONE (01:30)
[2019-09-28] MEDS ORDERED: diphenhydrAMINE HCL 50 MG/ML VIAL IV ONE (01:30)
[2019-09-28] MEDS ORDERED: DEXAMETHASONE SOD PHOSPHATE 10 MG/ML VIAL IV ONE (01:30)
[2019-09-28] MEDS ORDERED: PROCHLORPERAZINE EDISYLATE 10 MG/2 ML VIAL IVP ONE (01:30)
--- NOTE | 2019-09-28 02:32 | NUR ---
Instructed not to operate behind machinery on certain prescibed medications.
--- NOTE | 2019-09-28 02:32 | NUR ---
IV removed. Catheter intact and site benign. Pressure and 4x4 applied to site. No bleeding noted. Patient discharged to home in stable condition. Written and verbal after care instructions given. Patient verbalizes understanding of instruction.
[2019-09-28 02:33] VITALS: BP 121/83
== END 2019-09-28 02:33 | disposition home or self-care (01) ==
LOC: ER 21:09
DX: K29.70 Gastritis, unspecified, without bleeding (principal); K21.9 Gastro-esophageal reflux disease without esophagitis; F17.200 Nicotine dependence, unspecified, uncomplicated; R11.2 Nausea with vomiting, unspecified
CPT/HCPCS: 36415; 74177; 80048; 80076; 83605; 83690; 85025; 87081; 96361; 96374; 96375 ×2; 99284; J0780; J1100; J1170; J1200; J2405; J3490; J7030 ×2; Q9967

== ENCOUNTER 2019-10-05 23:52 | Emergency (ER) | payer MEDICAID ==
[~2019-10-05] VITALS: Ht 172.7 cm; Wt 68.9 kg
--- NOTE | 2019-10-06 00:21 | NUR ---
PT BIBF. C/O "NAUSEA VOMITTING AND HIGH BP AT HOME. 170/100" -SOB AOX4. VSS. PT CONNECTED TO THE MONITOR AND POX. AWAITING FOR MD REYNOLDS.
[2019-10-06] MEDS ORDERED: METOCLOPRAMIDE HCL 10 MG/2 ML VIAL ONE (01:06)
[2019-10-06] MEDS ORDERED: ONDANSETRON HCL/PF 4 MG/2 ML VIAL ONE (01:06)
--- NOTE | 2019-10-06 01:21 | NUR ---
ADDENDUM: Intravenous End Time Documentation: Normal saline 1 liter (IV-WO) : start time: 012 ; end time: 220 : IV site: RFA PIV # 20 Port # 1
[2019-10-06] MEDS ORDERED: IV NS 0.9% 1,000 ML BAG IV ONE (01:30)
[2019-10-06] MEDS ORDERED: METOCLOPRAMIDE HCL 10 MG/2 ML VIAL IV ONE (01:30)
[2019-10-06] MEDS ORDERED: ONDANSETRON HCL/PF - ER 4 MG/2 ML VIAL IV ONE (01:30)
[2019-10-06 01:37] LABS: BASOPHILS % (AUTO) 0.6 % (0.0-2.0); EOSINOPHILS % (AUTO) 0.4 % (0.0-6.0); HEMATOCRIT 44 % (39-51); HEMOGLOBIN 14.8 g/dL (13.5-17.5); LYMPHOCYTES # (AUTO) 1.6 /CMM (0.8-4.8); LYMPHOCYTES % (AUTO) 28.9 % (20.0-44.0); MEAN CORPUSCULAR HGB CONC 33 g/dl (31.0-36.0); MEAN CORPUSCULAR VOLUME 93 fL (80-96); MONOCYTES # (AUTO) 0.2 /CMM (0.1-1.30); MONOCYTES % (AUTO) 2.8 % (2.0-12.0); NEUTROPHILS # (AUTO) 3.6 /CMM (1.8-8.9); NEUTROPHILS % (AUTO) 67.3 % (43.0-81.0); RED BLOOD CELL COUNT(AUTO) 4.76 MIL/uL (4.5-6.0); WHITE BLOOD COUNT (AUTO) 5.4 K/uL (4.3-11.0)
[2019-10-06 01:39] LABS: PLATELET COUNT (AUTO) 11 /CMM (150-450)
[2019-10-06 01:42] LABS: CALCIUM, SERUM 9.7 mg/dL (8.5-10.1); CREATININE 1.1 mg/dL (0.6-1.3); POTASSIUM 4.2 mmol/L (3.5-5.1)
[2019-10-06 01:48] LABS: BILIRUBIN,DIRECT 0.1 mg/dL (0.0-0.2); BILIRUBIN,TOTAL 0.4 mg/dL (0.2-1.0); TOTAL PROTEIN, SERUM 7.3 g/dL (6.4-8.2)
[2019-10-06 02:20] LABS: BASOPHILS # (AUTO) 0.1 /CMM (0.0-0.2); BASOPHILS % (AUTO) 0.5 % (0.0-2.0); EOSINOPHILS % (AUTO) 0.3 % (0.0-6.0); HEMATOCRIT 43 % (39-51); HEMOGLOBIN 14.3 g/dL (13.5-17.5); LYMPHOCYTES # (AUTO) 1.2 /CMM (0.8-4.8); LYMPHOCYTES % (AUTO) 9.8 % (20.0-44.0); MEAN CORPUSCULAR HGB CONC 34 g/dl (31.0-36.0); MEAN CORPUSCULAR VOLUME 92 fL (80-96); MONOCYTES # (AUTO) 0.4 /CMM (0.1-1.30); MONOCYTES % (AUTO) 3.4 % (2.0-12.0); NEUTROPHILS # (AUTO) 10.2 /CMM (1.8-8.9); PLATELET COUNT (AUTO) 361 /CMM (150-450); RED BLOOD CELL COUNT(AUTO) 4.62 MIL/uL (4.5-6.0); WHITE BLOOD COUNT (AUTO) 11.9 K/uL (4.3-11.0)
--- NOTE | 2019-10-06 03:22 | NUR ---
Patient is resting comfortably in bed with eyes closed. Easily aroused. VSS
[2019-10-06] MEDS ORDERED: KETOROLAC TROMETHAMINE INJ 30 MG/ML VIAL IV ONE (04:00)
[2019-10-06] MEDS ORDERED: KETOROLAC TROMETHAMINE 15 MG/ML VIAL ONE (04:05)
--- NOTE | 2019-10-06 05:36 | NUR ---
[facility]. [phone] [phone]. ASK FOR CHARGE NURSE.
[2019-10-06 05:37] VITALS: BP 130/70
--- NOTE | 2019-10-06 05:41 | NUR ---
REPORT GIVEN TO CHAGO QUINONES AT [facility]
--- NOTE | 2019-10-06 05:58 | NUR ---
TRANSPORT ETA 45 MINS
--- NOTE | 2019-10-06 07:40 | NUR ---
Assumed care report given by [facility] to [facility] per report .
--- NOTE | 2019-10-06 07:48 | NUR ---
[facility] unit 112 here to trasfer patient to Facility
[2019-10-13] MEDS ORDERED: HYDR-4384 PO (08:48)
[2019-10-13] MEDS ORDERED: PANT40TA2 PO (08:48)
== END 2019-10-06 07:52 ==
LOC: ER 23:53
DX: R11.2 Nausea with vomiting, unspecified (principal); R10.84 Generalized abdominal pain; E11.9 Type 2 diabetes mellitus without complications; K21.9 Gastro-esophageal reflux disease without esophagitis; F12.10 Cannabis abuse, uncomplicated; F17.200 Nicotine dependence, unspecified, uncomplicated
CPT/HCPCS: 36415; 80048; 80076; 83690; 85025 ×2; 96361; 96374; 96375; 99285; J1885; J2405 ×2; J2765; J7030

== ENCOUNTER 2019-10-12 07:45 | Inpatient (IN) | payer MEDICAID ==
[~2019-10-12] VITALS: Ht 175.3 cm; Wt 67.1 kg
--- NOTE | 2019-10-12 08:00 | NUR ---
abdominal pain w/ nausea and vomiting, started last night. Patient a/ox4, breathing even and unlabored, no sob noted. Needs attended.
[2019-10-12] MEDS ORDERED: MORPHINE SULFATE INJ 2 MG/ML DISP.SYRIN IV ONE (09:00)
[2019-10-12] MEDS ORDERED: ONDANSETRON HCL/PF 4 MG/2 ML VIAL ONE (09:08)
[2019-10-12] MEDS ORDERED: MORPHINE SULFATE INJ 4 MG/ML DISP.SYRIN ONE (09:09)
[2019-10-12] MEDS ORDERED: ONDANSETRON HCL/PF - ER 4 MG/2 ML VIAL IV ONE (09:30)
[2019-10-12 09:31] LABS: BASOPHILS % (AUTO) 0.3 % (0.0-2.0); EOSINOPHILS % (AUTO) 0.5 % (0.0-6.0); HEMATOCRIT 45 % (39-51); LYMPHOCYTES # (AUTO) 1.2 /CMM (0.8-4.8); LYMPHOCYTES % (AUTO) 8.1 % (20.0-44.0); MEAN CORPUSCULAR HGB CONC 33 g/dl (31.0-36.0); MEAN CORPUSCULAR VOLUME 93 fL (80-96); MONOCYTES # (AUTO) 0.4 /CMM (0.1-1.30); MONOCYTES % (AUTO) 2.7 % (2.0-12.0); NEUTROPHILS # (AUTO) 12.5 /CMM (1.8-8.9); NEUTROPHILS % (AUTO) 88.4 % (43.0-81.0); PLATELET COUNT (AUTO) 307 /CMM (150-450); RED BLOOD CELL COUNT(AUTO) 4.86 MIL/uL (4.5-6.0); WHITE BLOOD COUNT (AUTO) 14.2 K/uL (4.3-11.0)
[2019-10-12 09:48] LABS: CALCIUM, SERUM 9.6 mg/dL (8.5-10.1); POTASSIUM 3.7 mmol/L (3.5-5.1)
[2019-10-12 09:54] LABS: ALBUMIN 4.2 g/dL (3.4-5.0); BILIRUBIN,TOTAL 0.3 mg/dL (0.2-1.0); TOTAL PROTEIN, SERUM 7.7 g/dL (6.4-8.2)
[2019-10-12] MEDS ORDERED: IOHEXOL-300 100 ML VIAL IV ONE (09:57)
[2019-10-12] MEDS ORDERED: IV NS 0.9% 250 ML IV ONE (09:58)
[2019-10-12] MEDS ORDERED: CT SWABBABLE VALVE TRANS SET 1 EA INFUS.SET MC ONE (09:58)
--- NOTE | 2019-10-12 10:08 | NUR ---
taken to ct
[2019-10-12] MEDS ORDERED: HYDROMORPHONE 1 MG/1 ML DISP.SYRIN ONE ×2 (10:24→13:30)
--- NOTE | 2019-10-12 10:36 | NUR ---
Patient c/o abdominal dutta s/p ct. Patient is resting comfortably in bed with eyes closed. Easily aroused. VSS
[2019-10-12] MEDS ORDERED: HYDROMORPHONE 1 MG/1 ML DISP.SYRIN IV ONE ×2 (11:00→14:00)
--- NOTE | 2019-10-12 12:33 | NUR ---
REPORT GIVEN TO MATHEW ANDERS FOR ROOM 201 MEDSURG.
--- NOTE | 2019-10-12 14:09 | NUR ---
Patient signed refusal of transfer to [facility]. Dr. Fuchs and admitting explained risks and benefits of staying in the hospital.
[2019-10-12] MEDS ORDERED: FLAGYL/NS RTU 500 MG/100 ML PIGGYBACK IV ONE (14:30)
[2019-10-12] MEDS ORDERED: CEFOTETAN DISODIUM 1 G in IV D5W 50 ML IV SCH (14:30)
[2019-10-12] MEDS ORDERED: CEFOXITIN 1 G in IV NS 0.9% 50 ML IV ONE (14:30)
--- NOTE | 2019-10-12 14:51 | NUR ---
DR. VENTURA AND HORACIO WARREN, AWARE PATIENT REFUSED TO BE TRANSFER TO [facility]. PATIENT IS AWARE THAT HE'LL BE PAYING OUT OF POCKET FOR HIS ADMISSION HERE IN THE HOSPITAL.
--- NOTE | 2019-10-12 15:40 | NUR ---
PATIENT TAKEN TO [facility] ROOM 201. ENDORSED TO MATHEW ANDERS FOR TAYLOR.
--- NOTE | 2019-10-12 15:50 | NUR ---
RN NOTES Patient received at this time from ER. Room air, patient states pain is under control.
[2019-10-12 16:00] VITALS: BP 132/83
--- NOTE | 2019-10-12 17:57 | NUR ---
RN CLOSING NOTES Patient remains on room air, no sob noted, patient states some discomfort and pain at this time. Awaiting MD orders from admitting MD, Dr. Torres. Bed at the lowest setting, call light within reach, side rails up x2. Will give report to NOC RN FOR TAYLOR bedside.
[2019-10-12] MEDS: HYDROMORPHONE 1 MG/1 ML DISP.SYRIN IV PRN ×2 (18:27→21:35)
[2019-10-12] MEDS ORDERED: ZOLPIDEM TARTRATE 5 MG TABLET PO PRN (18:30)
[2019-10-12] MEDS ORDERED: ACETAMINOPHEN 325 MG TABLET PO PRN (18:30)
[2019-10-12] MEDS ORDERED: IV D5/0.45 NACL 1,000 ML IV ONE (18:30)
--- NOTE | 2019-10-12 19:24 | NUR ---
MS RN RECEIVED PATIENT IN BED AWAKE A/O X 4, STABLE AND NOT IN DISTRESS. WILL CONTINUE TO MONITOR
[2019-10-12] MEDS: HYDROCODONE/APAP 5/325MG 1 EACH TABLET PO PRN (19:37)
[2019-10-12 20:00] VITALS: BP 125/69
[2019-10-12] MEDS ORDERED: METRONIDAZOLE 500MG/ NS 100ML 100 ML IV ONE (21:29)
[2019-10-12] MEDS: METRONIDAZOLE 500MG/ NS 100ML 500 MG in PREMIX 1 EA IV SCH (21:31)
[2019-10-12 21:39] LABS: BASOPHILS # (AUTO) 0.1 /CMM (0.0-0.2); BASOPHILS % (AUTO) 0.6 % (0.0-2.0); EOSINOPHILS % (AUTO) 3.2 % (0.0-6.0); HEMATOCRIT 42 % (39-51); HEMOGLOBIN 14.2 g/dL (13.5-17.5); LYMPHOCYTES # (AUTO) 2.3 /CMM (0.8-4.8); LYMPHOCYTES % (AUTO) 26.7 % (20.0-44.0); MEAN CORPUSCULAR HGB CONC 34 g/dl (31.0-36.0); MEAN CORPUSCULAR VOLUME 92 fL (80-96); MONOCYTES # (AUTO) 0.9 /CMM (0.1-1.30); MONOCYTES % (AUTO) 10.5 % (2.0-12.0); NEUTROPHILS # (AUTO) 5.2 /CMM (1.8-8.9); PLATELET COUNT (AUTO) 313 /CMM (150-450); WHITE BLOOD COUNT (AUTO) 8.8 K/uL (4.3-11.0)
[2019-10-12 22:49] LABS: MAGNESIUM 1.8 mg/dL (1.8-2.4); POTASSIUM 3.8 mmol/L (3.5-5.1)
--- NOTE | 2019-10-13 00:43 | NUR ---
MS RN DILAUDID 0.5 MG PO IVP WAS GIVEN TO THE PT PER PT REQUEST. VS STABLE.
[2019-10-13] MEDS: HYDROMORPHONE 1 MG/1 ML DISP.SYRIN IV PRN ×4 (02:33→09:58)
[2019-10-13] MEDS ORDERED: METRONIDAZOLE 500MG/ NS 100ML 100 ML IV ONE (03:18)
[2019-10-13] MEDS: METRONIDAZOLE 500MG/ NS 100ML 500 MG in PREMIX 1 EA IV SCH (03:20)
[2019-10-13 05:00] VITALS: BP 157/87
--- NOTE | 2019-10-13 06:22 | NUR ---
PT ASLEEP AND EASILY AWAKEN, MONITORED FOR PAIN WITH RELIEF, IN NO APPARENT DISTRESS, NEEDS ATTENDED AND ANTICIPATED, KEPT CLEAN, DRY AND COMFORTABLE AT ALL TIMES. SAFETY MEASURES IN PLACE. PT REFUSED TO GIVE UA SPECIMEN AT THIS TIME DESPITE EXPLAINING RISKS BENEFITS INSTRUCTED HIM TO GIVE URINE WHEN HE URINATE AGAIN. WILL ENDORSE NEXT SHIFT
--- NOTE | 2019-10-13 07:16 | NUR ---
RN OPENING NOTE PT WAS RECEIVED IN BED AT LOWEST AND LOCKED POSITION WITH SIDE RAILS UP X2, A/O X4 BREATHING EVEN AND UNLABORED ON RA WITH NO S/S OF ANY DISTRESS OR PAIN AT THIS TIME CURRENTLY ASLEEP IN BED, IV IS PATENT AND INTACT, SAFETY PRECAUTIONS IN PLACE, CALL LIGHT IN REACH, WILL MONITOR ACCORDINGLY
[2019-10-13 08:00] VITALS: BP 108/59
[2019-10-13] MEDS: HYDROCODONE/APAP 5/325MG 1 EACH TABLET PO PRN (08:18)
[2019-10-13] MEDS ORDERED: PANT40TA2 PO (08:48)
[2019-10-13] MEDS ORDERED: HYDR-4384 PO (08:48)
[2019-10-13] MEDS ORDERED: PANTOPRAZOLE 40 MG TABLET.DR PO SCH (09:00)
--- NOTE | 2019-10-13 10:11 | NUR ---
DISCHARGE NOTE PT WAS DISCHARGED AT THIS TIME IN MEDICALLY STABLE CONDITION BACK HOME AT THIS TIME, IV AND ID BAND WERE REMOVED. ALL D/C PAPERWORK, EXITCARE AND BELONGING LIST WERE SIGNED, DISCUSSED AND HANDED TO THE PATIENT. PRESCRIPTION WAS GIVEN TO THE PATIENT WELL. SKIN WAS DRY AND INTACT. ALL NEEDS WERE ATTENDED TO DURING HIS STAY. PT LEFT AT THIS IN STABLE CONDITION VIA LYFT RIDE.
[2019-10-13] MEDS ORDERED: METRONIDAZOLE 500MG/ NS 100ML 500 MG in PREMIX 1 EA IV SCH (12:00)
== END 2019-10-13 10:22 | disposition home or self-care (01) | DRG 241 ==
LOC: ER 07:46 → MEDSG2 15:01
PROVIDERS: ADMIT Internal Medicine; ATTEND Internal Medicine
DX: K29.70 Gastritis, unspecified, without bleeding (principal); K31.84 Gastroparesis; F32.9 Major depressive disorder, single episode, unspecified; K21.9 Gastro-esophageal reflux disease without esophagitis; K58.9 Irritable bowel syndrome, unspecified; K44.9 Diaphragmatic hernia without obstruction or gangrene; N40.0 Benign prostatic hyperplasia without lower urinary tract symptoms
CPT/HCPCS: 36415; 80048-TC; 80053-TC; 83735-TC; 84443-TC; 85025-TC; 87081-TC; A4216; G0378; J0694; J1170; J2270; J2405; J3490; J7050; J7060; Q9967

== ENCOUNTER 2019-11-01 13:43 | Emergency (ER) | payer MEDICAID ==
[~2019-11-01] VITALS: Ht 175.3 cm; Wt 67.1 kg
[~2019-11-01 13:43] MED LIST changes: +HYDR-4384 PO; -IV NS 0.9% 1,000 ML BAG IV ONE; -KETOROLAC TROMETHAMINE INJ 30 MG/ML VIAL IV ONE; -KETOROLAC TROMETHAMINE INJ 60 MG/2 ML VIAL IM ONE; -LORAZEPAM INJ 2 MG/ML VIAL IV ONE; -LORAZEPAM INJ 2 MG/ML VIAL ONE; -MORPHINE SULFATE INJ 2 MG/ML DISP.SYRIN IV ONE; -MORPHINE SULFATE INJ 4 MG/ML DISP.SYRIN ONE; -ONDANSETRON HCL/PF 4 MG/2 ML VIAL IVP ONE; -ONDANSETRON HCL/PF 4 MG/2 ML VIAL ONE; +PANT40TA2 PO
--- NOTE | 2019-11-01 13:50 | NUR ---
BIBRA FROM HOME C/O ABDOMINAL PAIN W/ NAUSEA AND VOMITING X TODAY. PATIENT A/OX4, BREATHING EVEN AND UNLABORED, NO SOB NOTED, ATTACHED TO THE STAMP PAD MAKER, CHANGED INTO GOWN.
[2019-11-01] MEDS ORDERED: ONDANSETRON HCL/PF 4 MG/2 ML VIAL IVP ONE (14:00)
[2019-11-01] MEDS ORDERED: METOCLOPRAMIDE HCL 10 MG/2 ML VIAL IV ONE (14:00)
[2019-11-01] MEDS ORDERED: IV NS 0.9% 1,000 ML BAG IV ONE (14:00)
[2019-11-01] MEDS ORDERED: MORPHINE SULFATE INJ 2 MG/ML DISP.SYRIN IV ONE ×2 (14:00→14:30)
--- NOTE | 2019-11-01 14:00 | NUR ---
IV LINE ESTABLISHED, BLOOD DRAWN AND SENT TO LAB.
[2019-11-01] MEDS ORDERED: ONDANSETRON HCL/PF 4 MG/2 ML VIAL ONE (14:14)
[2019-11-01] MEDS ORDERED: FAMOTIDINE/PF INJ 20 MG/2 ML VIAL IV ONE ×2 (14:15→14:30)
[2019-11-01] MEDS ORDERED: METOCLOPRAMIDE HCL 10 MG/2 ML VIAL ONE (14:15)
[2019-11-01] MEDS ORDERED: PANTOPRAZOLE 40 MG VIAL ONE (14:16)
[2019-11-01 14:19] LABS: BASOPHILS # (AUTO) 0.1 /CMM (0.0-0.2); BASOPHILS % (AUTO) 0.8 % (0.0-2.0); EOSINOPHILS % (AUTO) 2.7 % (0.0-6.0); HEMATOCRIT 48 % (39-51); LYMPHOCYTES # (AUTO) 2.8 /CMM (0.8-4.8); LYMPHOCYTES % (AUTO) 20.4 % (20.0-44.0); MEAN CORPUSCULAR HGB CONC 33 g/dl (31.0-36.0); MEAN CORPUSCULAR VOLUME 93 fL (80-96); MONOCYTES # (AUTO) 0.8 /CMM (0.1-1.30); MONOCYTES % (AUTO) 5.7 % (2.0-12.0); NEUTROPHILS # (AUTO) 9.8 /CMM (1.8-8.9); NEUTROPHILS % (AUTO) 70.4 % (43.0-81.0); PLATELET COUNT (AUTO) 331 /CMM (150-450); WHITE BLOOD COUNT (AUTO) 13.9 K/uL (4.3-11.0)
[2019-11-01 14:25] LABS: CREATININE 1.2 mg/dL (0.6-1.3); POTASSIUM 3.9 mmol/L (3.5-5.1)
[2019-11-01] MEDS ORDERED: MORPHINE SULFATE INJ 4 MG/ML DISP.SYRIN ONE (14:29)
[2019-11-01] MEDS ORDERED: PANTOPRAZOLE 40 MG VIAL IV ONE (14:30)
[2019-11-01] MEDS ORDERED: ONDANSETRON HCL/PF 4 MG/2 ML VIAL IV ONE (14:30)
[2019-11-01 14:37] LABS: ALBUMIN 4.7 g/dL (3.4-5.0); BILIRUBIN,DIRECT 0.1 mg/dL (0.0-0.2); BILIRUBIN,TOTAL 0.5 mg/dL (0.2-1.0); TOTAL PROTEIN, SERUM 8.3 g/dL (6.4-8.2)
[2019-11-01] MEDS ORDERED: HYDROMORPHONE 1 MG/1 ML DISP.SYRIN ONE (16:08)
[2019-11-01 16:13] LABS: APPEARANCE,URINE Cloudy (CLEAR); BILIRUBIN,URINE Negative (NEGATIVE); BLOOD, URINE Negative Ery/uL (NEGATIVE); COLOR,URINE Yellow (YELLOW); KETONES,URINE >=160 (NEGATIVE); LEUKOCYTE ESTERASE ,URINE Negative (NEGATIVE); NITRITE, URINE Negative (NEGATIVE); PH,URINE 8.5 (5.0-8.0); PROTEIN,URINE Trace mg/dl (NEGATIVE); UGLUCOSE Negative (NEGATIVE)
[2019-11-01] MEDS ORDERED: HYDROMORPHONE INJ 0.5 MG/0.5 ML SYRINGE IV ONE (16:30)
[2019-11-01 16:32] LABS: RBC,URINE 0-2 /HPF (0-2); WBC,URINE 0-2 /HPF (0-3)
[2019-11-01 16:33] LABS: BACTERIA,URINE Few /HPF (None Seen); SQUAMOUS EPITHELIAL CELL,UR Few /HPF (None Seen); URINE AMORPHOUS PHOSPHATES Moderate /HPF (None Seen)
[2019-11-01] MEDS ORDERED: METO10TA3 PO (17:05)
--- NOTE | 2019-11-01 17:20 | NUR ---
TURNED IN MOVE PACKET TO ADMITTING.
[2019-11-01 17:46] VITALS: BP 125/74
--- NOTE | 2019-11-01 18:01 | NUR ---
DR. NAIR FROM [facility] CALLED.
--- NOTE | 2019-11-01 18:08 | NUR ---
ANGEL ZAMBRANO PHONE NUMBER [phone]. FAX [phone]
--- NOTE | 2019-11-01 18:08 | NUR ---
ANGEL ZAMBRANO FROM [facility] CALLED LEFT CONTACT INFO. WANTS ME TO FAX CLINICALS AND INFORMATION ON PT.
--- NOTE | 2019-11-01 18:13 | NUR ---
PT WILL BE GOING TO [facility] JUST WAITING ON BED ASSIGNMENT FROM KENYA LEONARD.
--- NOTE | 2019-11-01 18:32 | NUR ---
KENYA ORTIZ FROM [facility] CALLED AND PT HAS A BED ASSIGNMENT. PT WILL BE GOING TO [facility] ROOM [address]. JANES IS THE NURSE. NUMBER FOR REPORT [phone].
--- NOTE | 2019-11-01 18:53 | NUR ---
REPORT GIVEN TO DIONNA ANDERS.
--- NOTE | 2019-11-01 18:57 | NUR ---
ANGEL ZAMBRANO CALLED WITH AMBULANCE INFO. ETA [id number] WITH [facility].
--- NOTE | 2019-11-01 20:17 | NUR ---
REPORT GIVEN TO AMBULANCE EMT. PT BEING TRANSPORTED TO [facility].
== END 2019-11-01 20:38 ==
LOC: ER 13:49
DX: R10.84 Generalized abdominal pain (principal); R11.2 Nausea with vomiting, unspecified; G89.29 Other chronic pain; F17.200 Nicotine dependence, unspecified, uncomplicated; F12.10 Cannabis abuse, uncomplicated; F11.10 Opioid abuse, uncomplicated; Z79.899 Other long term (current) drug therapy
CPT/HCPCS: 36415; 80048; 80076; 80305; 81001; 83690; 85025; 96361; 96374; 96375; 99285; A4216; C9113; J1170; J2270; J2405; J2765; J3490; J7030; 81000-TC

== ENCOUNTER 2019-11-16 22:10 | Emergency (ER) | payer MEDICAID ==
[~2019-11-16] VITALS: Ht 170.2 cm; Wt 63.5 kg
[~2019-11-16 22:10] MED LIST changes: -HYDR-4384 PO; +METO10TA3 PO; -PANT40TA2 PO
--- NOTE | 2019-11-16 22:15 | NUR ---
BIB MOM FOR C/O N/V X 2HRS. , PT AAOX4, -SOB, NAD NOTED, VSS, PENDING MD REYNOLDS
[2019-11-16] MEDS ORDERED: MORPHINE SULFATE INJ 2 MG/ML DISP.SYRIN IV ONE (22:30)
[2019-11-16] MEDS ORDERED: ONDANSETRON HCL/PF 4 MG/2 ML VIAL IVP ONE (22:30)
[2019-11-16] MEDS ORDERED: IV NS 0.9% 1,000 ML BAG IV ONE (22:30)
[2019-11-16] MEDS ORDERED: MORPHINE SULFATE INJ 4 MG/ML DISP.SYRIN ONE ×2 (22:37→23:59)
[2019-11-16] MEDS ORDERED: ONDANSETRON HCL/PF 4 MG/2 ML VIAL ONE ×2 (22:37→23:59)
[2019-11-16 22:44] LABS: BASOPHILS # (AUTO) 0.1 /CMM (0.0-0.2); BASOPHILS % (AUTO) 0.8 % (0.0-2.0); EOSINOPHILS % (AUTO) 1.7 % (0.0-6.0); HEMATOCRIT 44 % (39-51); HEMOGLOBIN 14.4 g/dL (13.5-17.5); LYMPHOCYTES % (AUTO) 21.7 % (20.0-44.0); MEAN CORPUSCULAR HGB CONC 33 g/dl (31.0-36.0); MEAN CORPUSCULAR VOLUME 93 fL (80-96); MONOCYTES # (AUTO) 0.9 /CMM (0.1-1.30); MONOCYTES % (AUTO) 6.3 % (2.0-12.0); NEUTROPHILS # (AUTO) 9.6 /CMM (1.8-8.9); NEUTROPHILS % (AUTO) 69.5 % (43.0-81.0); PLATELET COUNT (AUTO) 332 /CMM (150-450); WHITE BLOOD COUNT (AUTO) 13.8 K/uL (4.3-11.0)
[2019-11-16 22:50] LABS: CALCIUM, SERUM 9.5 mg/dL (8.5-10.1); POTASSIUM 3.6 mmol/L (3.5-5.1)
[2019-11-16 22:56] LABS: BILIRUBIN,TOTAL 0.2 mg/dL (0.2-1.0); TOTAL PROTEIN, SERUM 7.5 g/dL (6.4-8.2)
--- NOTE | 2019-11-17 02:12 | NUR ---
pt is accepted at [facility]. Accepting MD: Dr. Odonnell. # 304-ANurse: Jason and # for report: [phone] Auth no: [id number]
--- NOTE | 2019-11-17 02:27 | NUR ---
CALLED [facility] FOR TRANSPORTATION. CONFIRMATION #[id number] PENDING ETA
--- NOTE | 2019-11-17 02:54 | NUR ---
CALLED [facility] FOR TRANSPORTATION, UNABLE TO TRANSFER PATIENT WITH [facility]
--- NOTE | 2019-11-17 02:54 | NUR ---
[facility], UNABLE TO SET UP TRANSPORTATION WITH AUTHORIZATION CODE
--- NOTE | 2019-11-17 03:00 | NUR ---
ATTEMPTED TO CONTACT [facility] [employer] DIRECTOR TO INFORM UNABLE TO SET UP TRANSPORTATION. SPOKE WITH DEAN FROM [facility]
--- NOTE | 2019-11-17 03:45 | NUR ---
CALLED [facility] TO INFORM FOR TRANSPORTATION. WILL CALL BACK
[2019-11-17] MEDS ORDERED: MORPHINE SULFATE INJ 2 MG/ML DISP.SYRIN IV ONE ×2 (04:00)
[2019-11-17] MEDS ORDERED: ONDANSETRON HCL/PF 4 MG/2 ML VIAL IV ONE ×2 (04:00)
[2019-11-17] MEDS ORDERED: ONDANSETRON HCL/PF 4 MG/2 ML VIAL ONE (04:31)
[2019-11-17] MEDS ORDERED: MORPHINE SULFATE INJ 4 MG/ML DISP.SYRIN ONE (04:31)
--- NOTE | 2019-11-17 04:57 | NUR ---
CALLED [facility] FOR TRANSPORTATION UPDATE, WAITING FOR CALL BACK FROM [facility] SAMPLE PREP TECHNICIAN
--- NOTE | 2019-11-17 05:14 | NUR ---
SPOKE WITH [facility] CLINICAL COORDINATOR DEAN. TRANSPORTATION ETA [id number] WITH [facility]
--- NOTE | 2019-11-17 05:41 | NUR ---
REPORT GIVEN TO CHAGO GOODRICH FROM [facility]
--- NOTE | 2019-11-17 06:23 | NUR ---
Patient is resting comfortably in bed with eyes closed. Easily aroused. VSS
[2019-11-17 07:10] VITALS: BP 114/69
--- NOTE | 2019-11-17 07:10 | NUR ---
GAVE REPORT TO [facility] FOR TRANSPORTATION [place]
== END 2019-11-17 07:15 | disposition short-term general hospital (02) ==
LOC: ER 22:17
DX: G89.29 Other chronic pain (principal); R10.84 Generalized abdominal pain; R11.2 Nausea with vomiting, unspecified; F17.200 Nicotine dependence, unspecified, uncomplicated; Z88.8 Allergy status to other drugs, medicaments and biological substances; Z79.899 Other long term (current) drug therapy
CPT/HCPCS: 36415; 80048; 80076; 83690; 85025; 85730; 96361; 96374; 96375; 96376; 99285; J2270 ×3; J2405 ×3; J7030

== ENCOUNTER 2020-04-23 12:06 | Emergency (ER) | payer MEDICAID ==
[~2020-04-23] VITALS: Ht 177.8 cm; Wt 83.5 kg
--- NOTE | 2020-04-23 12:31 | NUR ---
BIBMOTHER FROM HOME TO ER BED 6. AAXO4. NOT IN RESP DISTRESS. CAME IN FOR GEN ABDOMINAL PAIN X 2 HOURS PRESIDENT ERGONOMIC CONSULTING. PT RATES PAIN 10/10 BURNING THROBBING SENSATION. HE ALSO REPORTS NAUSEA AND VOMMTING. DENIES DIARRHEA. MD WAS AT THE BEDSIDE FOR EVAL. ORDERS RECEIVED NOTED AND CARRIED OUT
[2020-04-23] MEDS ORDERED: MAG HYDROX/AL HYDROX/SIMETH 30 ML UDC ONE (12:51)
[2020-04-23] MEDS ORDERED: PANTOPRAZOLE 40 MG VIAL ONE (12:51)
[2020-04-23] MEDS ORDERED: ONDANSETRON HCL/PF 4 MG/2 ML VIAL ONE (12:52)
[2020-04-23 13:00] LABS: BASOPHILS # (AUTO) 0.1 /CMM (0.0-0.2); BASOPHILS % (AUTO) 1.2 % (0.0-2.0); EOSINOPHILS % (AUTO) 3.1 % (0.0-6.0); HEMATOCRIT 46 % (39-51); HEMOGLOBIN 15.1 g/dL (13.5-17.5); LYMPHOCYTES # (AUTO) 2.1 /CMM (0.8-4.8); LYMPHOCYTES % (AUTO) 30.9 % (20.0-44.0); MEAN CORPUSCULAR HGB CONC 33 g/dl (31.0-36.0); MEAN CORPUSCULAR VOLUME 93 fL (80-96); MONOCYTES # (AUTO) 0.5 /CMM (0.1-1.30); MONOCYTES % (AUTO) 7.6 % (2.0-12.0); NEUTROPHILS # (AUTO) 3.8 /CMM (1.8-8.9); NEUTROPHILS % (AUTO) 57.2 % (43.0-81.0); PLATELET COUNT (AUTO) 289 /CMM (150-450); RED BLOOD CELL COUNT(AUTO) 4.93 MIL/uL (4.5-6.0); WHITE BLOOD COUNT (AUTO) 6.7 K/uL (4.3-11.0)
[2020-04-23] MEDS ORDERED: PANTOPRAZOLE 40 MG VIAL IV ONE (13:00)
[2020-04-23] MEDS ORDERED: IV NS 0.9% 1,000 ML BAG IV ONE (13:00)
[2020-04-23] MEDS ORDERED: ONDANSETRON HCL/PF 4 MG/2 ML VIAL IVP ONE (13:00)
[2020-04-23] MEDS ORDERED: MAG HYDROX/AL HYDROX/SIMETH 30 ML UDC PO ONE (13:00)
[2020-04-23 13:08] LABS: CALCIUM, SERUM 9.4 mg/dL (8.5-10.1); POTASSIUM 3.3 mmol/L (3.5-5.1)
[2020-04-23 13:14] LABS: ALBUMIN 3.8 g/dL (3.4-5.0); BILIRUBIN,DIRECT 0.1 mg/dL (0.0-0.2); BILIRUBIN,TOTAL 0.4 mg/dL (0.2-1.0); TOTAL PROTEIN, SERUM 7.5 g/dL (6.4-8.2)
[2020-04-23] MEDS ORDERED: LIDOCAINE VISCOUS 2% UD 15 ML UDC ONE (13:27)
[2020-04-23] MEDS ORDERED: KETOROLAC TROMETHAMINE INJ 30 MG/ML VIAL ONE (13:41)
--- NOTE | 2020-04-23 13:57 | NUR ---
Patient discharged to home in stable condition. Written and verbal after care instructions given. Patient verbalizes understanding of instruction.IV removed. Catheter intact and site benign. Pressure and 4x4 applied to site. No bleeding noted. Pt ambulatory with a steady gait
[2020-04-23 13:58] VITALS: BP 137/79
[2020-04-23] MEDS ORDERED: LIDOCAINE VISCOUS 2% UD 15 ML UDC MM ONE (14:00)
[2020-04-23] MEDS ORDERED: KETOROLAC TROMETHAMINE INJ 30 MG/ML VIAL IV ONE (14:00)
== END 2020-04-23 13:58 | disposition home or self-care (01) ==
LOC: ER 12:06
DX: R10.13 Epigastric pain (principal); R11.10 Vomiting, unspecified; F17.200 Nicotine dependence, unspecified, uncomplicated; Z88.8 Allergy status to other drugs, medicaments and biological substances; Z79.899 Other long term (current) drug therapy
CPT/HCPCS: 36415; 80048; 80076; 83690; 85025; 96361; 96374; 96375; 99284; C9113; J1885; J2405; J7030

== ENCOUNTER 2020-10-18 20:21 | Emergency (ER) | payer MEDICAID ==
[~2020-10-18] VITALS: Ht 175.3 cm; Wt 65.8 kg
--- NOTE | 2020-10-18 20:30 | NUR ---
bibs for c/o body ache and n/v x 1 day. was seen at [facility] earlier.
[2020-10-18] MEDS ORDERED: ONDANSETRON HCL/PF 4 MG/2 ML VIAL ONE (20:53)
[2020-10-18] MEDS ORDERED: MORPHINE SULFATE INJ 4 MG/ML DISP.SYRIN ONE ×2 (20:53→21:42)
[2020-10-18] MEDS ORDERED: IV NS 0.9% 1,000 ML BAG IV ONE (21:00)
[2020-10-18] MEDS ORDERED: MORPHINE SULFATE INJ 2 MG/ML DISP.SYRIN IV ONE ×2 (21:00→22:00)
[2020-10-18] MEDS ORDERED: ONDANSETRON HCL/PF 4 MG/2 ML VIAL IVP ONE (21:00)
[2020-10-18 22:55] VITALS: BP 167/92
--- NOTE | 2020-10-18 22:55 | NUR ---
Patient discharged to home in stable condition. Written and verbal after care instructions given. Patient verbalizes understanding of instruction. IV removed. Catheter intact and site benign. Pressure and 4x4 applied to site. No bleeding noted.
== END 2020-10-18 22:55 | disposition home or self-care (01) ==
LOC: ER 20:25
DX: R10.84 Generalized abdominal pain (principal); G89.29 Other chronic pain; R11.2 Nausea with vomiting, unspecified; F17.200 Nicotine dependence, unspecified, uncomplicated; Z90.49 Acquired absence of other specified parts of digestive tract; Z88.8 Allergy status to other drugs, medicaments and biological substances; Z79.899 Other long term (current) drug therapy
CPT/HCPCS: 96361; 96374; 96375; 96376; 99284; J2270 ×2; J2405; J7030

== ENCOUNTER 2020-10-20 14:19 | Emergency (ER) | payer MEDICAID ==
[~2020-10-20] VITALS: Ht 175.3 cm; Wt 70.3 kg
--- NOTE | 2020-10-20 15:29 | NUR ---
AT BEDSIDE FOR EVAL.
[2020-10-20] MEDS ORDERED: ONDANSETRON HCL/PF 4 MG/2 ML VIAL ONE ×2 (15:36→17:11)
[2020-10-20] MEDS ORDERED: PANTOPRAZOLE 40 MG VIAL ONE (15:36)
[2020-10-20] MEDS ORDERED: PANTOPRAZOLE 40 MG VIAL IV ONE (16:00)
[2020-10-20] MEDS ORDERED: ONDANSETRON HCL/PF 4 MG/2 ML VIAL IVP ONE (16:00)
[2020-10-20] MEDS ORDERED: IV NS 0.9% 1,000 ML BAG IV ONE (16:00)
--- NOTE | 2020-10-20 16:00 | NUR ---
abdominal pain, body aches 2 days, sts food poisoning. vomiting x today. MEDICATED ORDERED, PT GIOVANI WELL. WILL CONT TO MONITOR.
[2020-10-20 16:13] LABS: BASOPHILS # (AUTO) 0.1 /CMM (0.0-0.2); BASOPHILS % (AUTO) 0.6 % (0.0-2.0); EOSINOPHILS % (AUTO) 1.9 % (0.0-6.0); HEMATOCRIT 45 % (39-51); HEMOGLOBIN 15.4 g/dL (13.5-17.5); LYMPHOCYTES % (AUTO) 13.9 % (20.0-44.0); MEAN CORPUSCULAR HGB CONC 34 g/dl (31.0-36.0); MEAN CORPUSCULAR VOLUME 95 fL (80-96); MONOCYTES # (AUTO) 0.8 /CMM (0.1-1.30); MONOCYTES % (AUTO) 5.6 % (2.0-12.0); NEUTROPHILS # (AUTO) 11.2 /CMM (1.8-8.9); PLATELET COUNT (AUTO) 282 /CMM (150-450); RED BLOOD CELL COUNT(AUTO) 4.73 MIL/uL (4.5-6.0); WHITE BLOOD COUNT (AUTO) 14.3 K/uL (4.3-11.0)
[2020-10-20 16:23] LABS: CALCIUM, SERUM 9.2 mg/dL (8.5-10.1); CREATININE 1.1 mg/dL (0.6-1.3); POTASSIUM 4.2 mmol/L (3.5-5.1)
[2020-10-20 16:29] LABS: ALBUMIN 4.1 g/dL (3.4-5.0); BILIRUBIN,TOTAL 0.3 mg/dL (0.2-1.0); TOTAL PROTEIN, SERUM 7.5 g/dL (6.4-8.2)
[2020-10-20] MEDS ORDERED: LORAZEPAM INJ 2 MG/ML VIAL ONE (17:12)
[2020-10-20] MEDS ORDERED: LORAZEPAM INJ 2 MG/ML VIAL IV ONE (17:30)
[2020-10-20] MEDS ORDERED: ONDANSETRON HCL/PF - ER 4 MG/2 ML VIAL IV ONE (17:30)
[2020-10-20] MEDS ORDERED: IV NS 0.9% 1,000 ML IV ONE (17:30)
--- NOTE | 2020-10-20 17:30 | NUR ---
PT IS STILL VOMITING. MEDICATED PER ERMD ORDER, PT GOIVANI WELL. WILL CONT TO MONITOR.
--- NOTE | 2020-10-20 19:27 | NUR ---
PT DISCHARGE PER DR. HOLM'S ORDER. PT REFUSED TO GO HOME. DR. HOLM SPOKE TO THE PATIENT. IV removed. Catheter intact and site benign. Pressure and 4x4 applied to site. No bleeding noted. PT REFUSED TO SIGN ACI & LEFT ED WITH STABLE CONDITION.
[2020-10-20 19:30] VITALS: BP 138/89
== END 2020-10-20 19:31 | disposition home or self-care (01) ==
LOC: ER 14:21
DX: R10.84 Generalized abdominal pain (principal); G89.29 Other chronic pain; F10.10 Alcohol abuse, uncomplicated; R11.10 Vomiting, unspecified; F32.9 Major depressive disorder, single episode, unspecified; K21.9 Gastro-esophageal reflux disease without esophagitis; F17.200 Nicotine dependence, unspecified, uncomplicated; Y90.0 Blood alcohol level of less than 20 mg/100 ml; Z90.49 Acquired absence of other specified parts of digestive tract; Z98.890 Other specified postprocedural states; Z88.8 Allergy status to other drugs, medicaments and biological substances; Z79.899 Other long term (current) drug therapy
CPT/HCPCS: 80048; 80076; 80307; 80320; 83690; 85025; 96361; 96374; 96375; 96376; 99284; C9113; J2060; J2405 ×2; J7030; 36415; G0480

== ENCOUNTER 2022-01-31 14:12 | Emergency (ER) | payer MEDICAID ==
[~2022-01-31] VITALS: Ht 175.3 cm; Wt 63.5 kg
--- NOTE | 2022-01-31 14:20 | NUR ---
SAMRA 41 FROM RETIREMENT C/O ABDOMINAL PAIN SINCE YESTERDAY. PER [facility], PT WAS DIAGNOSED WITH PANCREATITIS YESTERDAY. AAOX4, BREATHING EVEN AND UNLABORED, PULSES 2+ BILATERALLY, HANDS ARE COLD TO TOUCH. ON MONITOR. WILL CONTINUE TO MONITOR.
[2022-01-31] MEDS ORDERED: IV NS 0.9% 1,000 ML BAG IV ONE (14:30)
--- NOTE | 2022-01-31 14:58 | NUR ---
BLOOD SAMPLE OBTAINED AND SENT TO LAB
[2022-01-31 15:06] LABS: BASOPHILS # (AUTO) 0.1 K/uL (0.0-0.2); BASOPHILS % (AUTO) 0.4 % (0.0-2.0); EOSINOPHILS % (AUTO) 0.2 % (0.0-6.0); HEMATOCRIT 47 % (39-51); HEMOGLOBIN 15.7 g/dL (13.5-17.5); LYMPHOCYTES # (AUTO) 1.2 K/uL (0.8-4.8); LYMPHOCYTES % (AUTO) 8.9 % (20.0-44.0); MEAN CORPUSCULAR HGB CONC 33 g/dl (31.0-36.0); MEAN CORPUSCULAR VOLUME 93 fL (80-96); MONOCYTES # (AUTO) 0.8 K/uL (0.1-1.30); MONOCYTES % (AUTO) 6.3 % (2.0-12.0); NEUTROPHILS # (AUTO) 10.9 K/uL (1.8-8.9); NEUTROPHILS % (AUTO) 84.2 % (43.0-81.0); PLATELET COUNT (AUTO) 365 K/uL (150-450); RED BLOOD CELL COUNT(AUTO) 5.06 MIL/uL (4.5-6.0)
--- NOTE | 2022-01-31 15:17 | NUR ---
PT BACK FROM CT
[2022-01-31 15:30] LABS: ALBUMIN 3.6 g/dL (3.4-5.0); BILIRUBIN,DIRECT 0.1 mg/dL (0.0-0.2); BILIRUBIN,TOTAL 0.4 mg/dL (0.2-1.0); CALCIUM, SERUM 9.1 mg/dL (8.5-10.1); POTASSIUM 4.1 mmol/L (3.5-5.1)
--- NOTE | 2022-01-31 15:36 | NUR ---
PT UNABLE TO PROVIDE URINE AT THIS TIME. WILL TRY AGAIN LATER.
--- NOTE | 2022-01-31 15:43 | NUR ---
REFUSED TO PROVIDE URINE
--- NOTE | 2022-01-31 15:53 | NUR ---
IV removed. Catheter intact and site benign. Pressure and 4x4 applied to site. No bleeding noted.
[2022-01-31] MEDS ORDERED: OMEP40CA21 PO (16:01)
--- NOTE | 2022-01-31 16:50 | NUR ---
PER MD, OK TO GIVE TORADOL 30 MG IM. PER PT, HAS TAKEN TORADOL IN THE PAST AND TOLERATED IT WELL.
[2022-01-31] MEDS ORDERED: KETOROLAC TROMETHAMINE INJ 30 MG/ML VIAL ONE (16:52)
[2022-01-31 17:10] VITALS: BP 145/87
[2022-01-31] MEDS ORDERED: KETOROLAC TROMETHAMINE INJ 30 MG/ML VIAL IM ONE (17:30)
== END 2022-01-31 17:11 | disposition home or self-care (01) ==
LOC: ER 14:13
DX: R10.13 Epigastric pain (principal); I10 Essential (primary) hypertension; K21.9 Gastro-esophageal reflux disease without esophagitis; F17.200 Nicotine dependence, unspecified, uncomplicated; Z90.49 Acquired absence of other specified parts of digestive tract; Z88.8 Allergy status to other drugs, medicaments and biological substances; Z79.899 Other long term (current) drug therapy
CPT/HCPCS: 36415; 74176; 80048; 80076; 83690; 85025; 96360; 96372; 99284; J1885; J7030

== ENCOUNTER 2022-05-11 17:44 | Emergency (ER) | payer MEDICAID, OTHER ==
[~2022-05-11] VITALS: Ht 175.3 cm; Wt 61.2 kg
[~2022-05-11 17:44] MED LIST changes: +OMEP40CA21 PO
[2022-05-11] MEDS ORDERED: ONDANSETRON 4 MG TAB.RAPDIS SL ONE (19:30)
[2022-05-11] MEDS ORDERED: TRAMADOL HCL 50 MG TABLET PO ONE (19:30)
[2022-05-11] MEDS ORDERED: LIDOCAINE VISCOUS 2% UD 15 ML UDC MM ONE (19:30)
[2022-05-11] MEDS ORDERED: MAG HYDROX/AL HYDROX/SIMETH 30 ML UDC PO ONE (19:30)
[2022-05-11] MEDS ORDERED: MAG HYDROX/AL HYDROX/SIMETH 30 ML UDC ONE (19:40)
[2022-05-11] MEDS ORDERED: TRAMADOL HCL 50 MG TABLET ONE (19:40)
[2022-05-11] MEDS ORDERED: ONDANSETRON 4 MG TAB.RAPDIS ONE (19:40)
[2022-05-11] MEDS ORDERED: LIDOCAINE VISCOUS 2% UD 15 ML UDC ONE (19:40)
--- NOTE | 2022-05-11 19:52 | NUR ---
BIB [employer] OFF[employer]ERS ASHLEY FLOREZ DETENTION C/O ADB PAIN AND VOMITING SINCE YESTERDAY. PT IN CUSTODY AND [employer] AT BEDSIDE. PT AWAKE AND ALERT X4 BREATHING UNLABORED. PLACED ON MONITOR AND PULSE OX AND V/S WNL.
[2022-05-11] MEDS ORDERED: ONDA4TAB5 PO (20:15)
--- NOTE | 2022-05-11 20:40 | NUR ---
Patient discharged to [employer] custody in stable condition. Written and verbal after care instructions given. Patient verbalizes understanding of instruction. PT ambulatory with a steady gait
[2022-05-11 20:41] VITALS: BP 131/71
== END 2022-05-11 20:41 ==
LOC: ER 17:48
DX: R10.84 Generalized abdominal pain (principal); G89.29 Other chronic pain; I10 Essential (primary) hypertension; K21.9 Gastro-esophageal reflux disease without esophagitis; Z90.49 Acquired absence of other specified parts of digestive tract; Z88.8 Allergy status to other drugs, medicaments and biological substances; Z79.899 Other long term (current) drug therapy
CPT/HCPCS: 99284; Q0162